=== PATIENT | female | born 1950 | race Caucasian/White ===

== ENCOUNTER 2016-10-19 09:25 | Inpatient (IN) | payer MEDICARE, OTHER ==
[~2016-10-19] VITALS: Ht 144.8 cm; Wt 79.9 kg
[2016-10-19] MEDS ORDERED: methylPREDNISolone SOD SUCC PF 125 MG/2 ML VIAL. ONE (09:33)
[2016-10-19] MEDS ORDERED: FAMOTIDINE 20 MG/2 ML VIAL ONE (09:33)
[2016-10-19] MEDS ORDERED: diphenhydrAMINE 50 MG/ML VIAL ONE (09:33)
[2016-10-19] MEDS ORDERED: IPRATRPIUM/ALBUTEROL 0.5/2.5MG 3 ML NEBU. ONE (09:34)
[2016-10-19] MEDS ORDERED: IV NORMAL SALINE 1,000ML 500 ML IV SCH (09:34)
[2016-10-19] MEDS ORDERED: EPINEPHrine 1 MG/ML AMPUL IM ONE (09:45)
[2016-10-19] MEDS ORDERED: diphenhydrAMINE 50 MG/ML VIAL IV ONE (09:45)
[2016-10-19] MEDS ORDERED: FAMOTIDINE 20 MG/2 ML VIAL IVP ONE (09:45)
[2016-10-19] MEDS ORDERED: methylPREDNISolone SOD SUCC PF 125 MG/2 ML VIAL. IV ONE (09:45)
--- NOTE | 2016-10-19 09:53 | PHYS DOC ---
General Chief Complaint: yellow jacket stings Stated Complaint: NA Time Seen by MD: 09:34 Source: patient Exam Limitations: no limitations Problems: History of Present Illness Initial Comments Patient is a 66-year-old female who comes to the ED complaining yellow jacket stings. Patient states she was outside working in the yard when she turned over a board. She says that she must have upset a wasp nest as they began to warm her and stabbing her. She says she was stung multiple times in the face and neck upper extremities and other individual sprayed her off with a cold follows to rid her of the wasps. She is complaining of severe pain at the sites of the numerous stings as well as a sensation of difficulty breathing and wheezing. She has history of COPD she has no prior history of insect sting allergies. She was able to shower briefly at home before coming to the emergency department for evaluation. On ED arrival her oxygen saturation is stable and she denies any funny feelings in her throat, throat or tongue swelling. No nausea vomiting no other pre-arrival treatment. Timing/Duration: 1/2 hour Severity: severe Modifying Factors: improves with cold therapy Associated Symptoms: rash, shortness of breath, other Allergies: Coded Allergies: hydrocodone (Verified Allergy, Intermediate, 10/19/16) codeine (Verified Allergy, Unknown, 10/19/16) Past Medical History Medical History: COPD Surgical History: noncontributory Social History Smoker: quit greater than 1 year Alcohol: none Drugs: none Review of Systems Constitutional: denies chills, denies diaphoresis, denies fever, denies malaise EENTM: denies eye pain, denies tearing, denies ear pain, denies ear discharge, denies nose pain, denies nose congestion, denies throat pain, denies throat swelling, denies mouth pain, denies mouth swelling Respiratory: see HPI Cardiovascular: denies chest pain, denies palpitations, denies syncope Gastrointestinal: denies diarrhea, denies nausea, denies vomiting Musculoskeletal: denies back pain, denies joint swelling, denies neck pain Skin: see HPI Hematologic/Lymphatic: denies blood clots, denies easy bleeding, denies easy bruising Physical Exam General Appearance: moderate distress, obese Eyes: bilateral eye normal inspection, bilateral eye PERRL, bilateral eye EOMI Ear, Nose, Throat: hearing grossly normal, normal ENT inspection, normal pharynx (no oral pharyngeal swelling noted airway is patent) Neck: non-tender, supple Respiratory: chest non-tender, no respiratory distress, other (faint wheeze bilaterally with good air movement) Cardiovascular: normal peripheral pulses, regular rate, rhythm Back: no CVA tenderness, no vertebral tenderness Extremities: normal range of motion, normal inspection Neurologic/Psychiatric: revenue specialist II-XII nml as tested, no motor/sensory deficits, alert, oriented x 3 Skin: warm/dry (scattered across bilateral upper extremities, and face and neck as well as a right knee 3 cm round urticarial erythematous lesions no retained particles noted no active bleeding or abrasions. All areas are warm slightly itchy and mildly tender) Orders, Labs, Meds Patient received epinephrine, Solu-Medrol, Benadryl, and Pepcid on ED arrival. Patient also received a breathing treatment and her sensations of dyspnea resolved. Patient still with severe pain at the sites of her standing as well as soft tissue swelling in general airway remains patent with no throat or tongue swelling. I discussed the patient with Dr. Arreaga who accepts inpatient telemetry admission for continued respiratory and symptom support. Departure Time of Disposition: 11:37 Disposition: 09 ADMITTED INPATIENT Diagnosis: wasp sting allergy/toxicity, copd Condition: STABLE Additional Instructions: Admit to Dr Arreaga tele/obs to continue analgesia, respiratory support and steroids/antihistamines. JOANN GRIER DO Oct 19, 2016 09:53
[2016-10-19] MEDS: fentaNYL PF 100 MCG/2 ML VIAL IV PRN ×4 (10:23→20:05)
[2016-10-19] MEDS ORDERED: fentaNYL PF 100 MCG/2 ML VIAL IV PRN (11:45)
[2016-10-19] MEDS ORDERED: ONDANSETRON PF 4 MG/2 ML VIAL. IV PRN (11:45)
[2016-10-19] MEDS ORDERED: ACETAMINOPHEN 325 MG TABLET PO PRN (11:45)
[2016-10-19 13:06] VITALS: BP 185/77
[2016-10-19 13:14] VITALS: BP 174/67
[2016-10-19 14:35] VITALS: BP 187/87
[2016-10-19] MEDS: diphenhydrAMINE 50 MG/ML VIAL IVP SCH ×3 (15:08→23:59)
[2016-10-19] MEDS: methylPREDNISolone SOD SUCC PF 125 MG/2 ML VIAL. IV SCH ×2 (15:10→21:56)
[2016-10-19 16:00] VITALS: BP 179/61
[2016-10-19] MEDS: IPRATRPIUM/ALBUTEROL 0.5/2.5MG 3 ML NEBU. NEB SCH ×3 (17:30→21:53)
[2016-10-19 19:40] VITALS: BP 183/80
[2016-10-19] MEDS ORDERED: FAMOTIDINE 20 MG/2 ML VIAL IVP SCH (21:00)
[2016-10-19 23:27] VITALS: BP 192/81
[2016-10-20 03:16] VITALS: BP 149/72
[2016-10-20] MEDS: methylPREDNISolone SOD SUCC PF 125 MG/2 ML VIAL. IV SCH (04:12)
[2016-10-20 05:22] VITALS: BP 130/60
[2016-10-20] MEDS: IPRATRPIUM/ALBUTEROL 0.5/2.5MG 3 ML NEBU. NEB SCH ×2 (05:42→10:22)
[2016-10-20] MEDS: diphenhydrAMINE 50 MG/ML VIAL IVP SCH (06:02)
[2016-10-20 06:26] LABS: BASO % 0 % (0-3); EOS % 0 % (0-3); HEMATOCRIT 38.1 % (36.0-47.0); HEMOGLOBIN 13.1 g/dL (12.0-15.5); LYMPH % 10 % (24-48); MEAN CORPUSCULAR HEMOGLOBIN 31 pg (25-35); MEAN CORPUSCULAR HGB CONC 35 g/dL (31-37); MEAN CORPUSCULAR VOLUME 90 fL (79-100); MONO # 0.2 x10^3/uL (0.0-1.1); MONO % 2 % (0-9); NEUT # 8.4 x10^3uL (1.8-7.7); NEUT % 88 % (31-73); PLATELET COUNT 190 x10^3/uL (140-400); RED BLOOD COUNT 4.25 x10^6/uL (3.50-5.40); RED CELL DISTRIBUTION WIDTH 15.1 % (11.5-14.5); WHITE BLOOD COUNT 9.5 x10^3/uL (4.0-11.0)
[2016-10-20 06:41] LABS: CALCIUM 9.5 mg/dL (8.5-10.1); CREATININE 0.8 mg/dL (0.6-1.0); GFR 71.8; POTASSIUM 4.3 mmol/L (3.5-5.1)
[2016-10-20 07:21] VITALS: BP 180/79
[2016-10-20] MEDS ORDERED: fentaNYL 12MCG/HR 1 PATCH PATCH TD SCH (09:00)
[2016-10-20] MEDS ORDERED: LOSARTAN 50 MG TABLET. PO SCH (09:00)
[2016-10-20] MEDS ORDERED: METOPROLOL TART IMMED RELEASE 50 MG TABLET PO SCH (09:00)
[2016-10-20] MEDS ORDERED: FAMOTIDINE 20 MG TABLET PO SCH (09:00)
[2016-10-20] MEDS ORDERED: methylPREDNISolone 4 MG TABLET. PO SCH (09:00)
[2016-10-20 11:21] VITALS: BP 182/76
[2016-10-20] MEDS ORDERED: diphenhydrAMINE HCL 25 MG CAPSULE PO SCH (12:00)
--- NOTE | 2016-10-20 12:02 | HP ---
ADMIT DATE: 10/19/2016 HISTORY OF PRESENT ILLNESS: A 66-year-old female out gathering leaves raking, was stung in the face and head with multiple wasp stings. The patient apparently had some type of obviously an insect reaction to the venom, lacy rivera, it was a wasp, not quite clear of the flying organisms that caused it, but the patient did have numerous stings, difficulty breathing, wheezing, and tightness in her lungs. As a result of this, she got into the ER, immediately placed her on oxygen and the patient was admitted for observation, also control of her blood pressure. 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 She did need to take them. PAST MEDICAL HISTORY: Includes that of she has had some form of skin cancer and COPD in the past. She does not have a list of her old medications because she has not taken them so long. FAMILY HISTORY: Unremarkable. SOCIAL HISTORY: Denies smoking, alcohol or drug use. The patient is a DNR. ALLERGIES: She has adverse reaction to codeine and hydrocodone, but fentanyl seems to help her degenerative arthritis, which is fairly severe giving her severe amounts of pain. REVIEW OF SYSTEMS: Presently denies any chest pain, shortness of breath, abdominal pain. Denies any melena, hematochezia, or hematemesis, and neurologically stable. PHYSICAL EXAMINATION: VITAL SIGNS: She has been running blood pressures of 100 upwards of 190/80, respiratory rate 23, pulse 70, afebrile. HEENT: The patient's head was atraumatic, normocephalic. Eyes: PERRLA without jaundice. Mouth and throat were normal. NECK: Supple, without thyromegaly. LUNGS: Diminished throughout, but clear. CARDIOVASCULAR: Regular sinus rhythm. ABDOMEN: Soft, nontender, no rebound or guarding, positive bowel sounds, no hepatosplenomegaly noted. EXTREMITIES: No clubbing, cyanosis or edema. NEUROLOGIC: The patient is still a little bit of short of breath. IMPRESSION AND PLAN: We will go ahead and continue to monitor her accordingly. Labs were basically unremarkable at this time. We will get a chest x-ray, blood sugar was 155, may need to get an A1c on her and some other blood test there. Otherwise, multiple insect bites to the face, severe reaction, mild anaphylactic reaction to the wasp stings with shortness of breath, respiratory failure. Continue to monitor the patient accordingly. Make further evaluation on her and hopefully ready for discharge, change her over to oral medications if possible discharge, control blood pressure, malignant hypertension as well as multiple insect bites to the face. BREE RICHARDS MD DR: VAHID/yuri JOB#: [id number] / [id number]
--- NOTE | 2016-10-20 12:57 | RAD ---
Indication shortness of breath and cough. PA and lateral views of the chest were obtained. No prior plain film imaging is available. Note is made of a CT examination of the chest 06/02/2006. The heart and pulmonary vessels appear normal. The lungs are clear of acute infiltrates. There is no pleural fluid or pneumothorax. The stomach is somewhat distended with fluid and gas. IMPRESSION: No acute or focal process is seen in the chest
[2016-10-20] MEDS ORDERED: METH4TAB2 PO (13:07)
[2016-10-20] MEDS ORDERED: FENT-73 TD (13:07)
[2016-10-20] MEDS ORDERED: METO50TA2 PO (13:07)
[2016-10-20] MEDS ORDERED: FAMO20TA5 PO (13:07)
[2016-10-20] MEDS ORDERED: LOSA50TA2 PO (13:07)
== END 2016-10-20 14:00 | disposition home or self-care (01) | DRG 917 ==
LOC: ER 09:25 → ICU 12:10 → OBSVTOIN 14:17
PROVIDERS: ADMIT Family Medicine; ATTEND Family Medicine
DX: T63.461A Toxic effect of venom of wasps, accidental (unintentional), initial encounter (principal); J96.90 Respiratory failure, unspecified, unspecified whether with hypoxia or hypercapnia; T78.2XXA Anaphylactic shock, unspecified, initial encounter; X58.XXXA Exposure to other specified factors, initial encounter; J44.9 Chronic obstructive pulmonary disease, unspecified; M19.90 Unspecified osteoarthritis, unspecified site; I10 Essential (primary) hypertension; Z66 Do not resuscitate; Z85.828 Personal history of other malignant neoplasm of skin; Z87.891 Personal history of nicotine dependence; Z88.8 Allergy status to other drugs, medicaments and biological substances; Y92.096 Garden or yard of other non-institutional residence as the place of occurrence of the external cause
CPT/HCPCS: 36415; 71020; 80048; 85025; 87641; 94640; 96361; 96372; 96374; 96375; G0378; G0379; J0171; J1200; J2930; J3010; J7509; J7620; Q0163; S0028; 99285-25; J7030

== ENCOUNTER 2017-02-21 17:25 | Inpatient (IN) | payer MEDICARE, OTHER ==
[~2017-02-21] VITALS: Ht 144.8 cm; Wt 85.3 kg
[~2017-02-21 17:25] MED LIST: FAMO20TA5 PO; FENT-73 TD; LOSA50TA2 PO; METH4TAB2 PO; METO50TA6 PO
[2017-02-21 19:35] LABS: BASO % 1 % (0-3); EOS % 0 % (0-3); HEMATOCRIT 36.3 % (36.0-47.0); HEMOGLOBIN 12.3 g/dL (12.0-15.5); LYMPH # 0.7 x10^3/uL (1.0-4.8); LYMPH % 15 % (24-48); MEAN CORPUSCULAR HEMOGLOBIN 30 pg (25-35); MEAN CORPUSCULAR HGB CONC 34 g/dL (31-37); MEAN CORPUSCULAR VOLUME 89 fL (79-100); MONO # 0.4 x10^3/uL (0.0-1.1); MONO % 8 % (0-9); NEUT # 3.4 x10^3uL (1.8-7.7); NEUT % 76 % (31-73); PLATELET COUNT 150 x10^3/uL (140-400); RED CELL DISTRIBUTION WIDTH 14.2 % (11.5-14.5); WHITE BLOOD COUNT 4.5 x10^3/uL (4.0-11.0)
[2017-02-21] MEDS ORDERED: FURO20TA3 PO (19:41)
[2017-02-21] MEDS ORDERED: ATOR20TA58 PO (19:41)
[2017-02-21] MEDS ORDERED: FENT1PAT15 TD (19:41)
[2017-02-21 19:42] LABS: ALBUMIN 3.5 g/dL (3.4-5.0); ALBUMIN/GLOBULIN RATIO 0.8 (1.0-1.7); CALCIUM 9.1 mg/dL (8.5-10.1); CREATININE 0.7 mg/dL (0.6-1.0); GFR 83.5; MAGNESIUM 2.1 mg/dL (1.8-2.4); POTASSIUM 3.6 mmol/L (3.5-5.1); TOTAL BILIRUBIN 0.3 mg/dL (0.2-1.0); TOTAL PROTEIN 7.7 g/dL (6.4-8.2)
[2017-02-21] MEDS: ONDANSETRON ODT 4 MG TAB.RAPDIS PO PRN (19:47)
[2017-02-21 20:02] VITALS: BP 161/70
[2017-02-21] MEDS: IV NORMAL SALINE 1,000ML 1,000 ML IV SCH (20:08)
[2017-02-21 20:40] LABS: INFLUENZA A PATIENT NEGATIVE (NEGATIVE); INFLUENZA B PATIENT NEGATIVE (NEGATIVE)
[2017-02-21] MEDS ORDERED: AZITHROMYCIN 250 MG in IV NORMAL SALINE 250ML 250 ML IV SCH (21:30)
[2017-02-21] MEDS ORDERED: AZITHROMYCIN 500 MG in IV NORMAL SALINE 250ML 250 ML IV SCH (21:30)
[2017-02-21] MEDS: IPRATRPIUM/ALBUTEROL 0.5/2.5MG 3 ML NEBU. NEB SCH (22:11)
[2017-02-21] MEDS: ONDANSETRON PF 4 MG/2 ML VIAL. IV PRN (22:11)
[2017-02-21] MEDS: ATORVASTATIN CALCIUM 20 MG TABLET PO SCH (22:11)
[2017-02-21] MEDS: FAMOTIDINE 20 MG TABLET PO SCH (22:11)
[2017-02-21] MEDS: METOPROLOL TART IMMED RELEASE 50 MG TABLET PO SCH (22:12)
[2017-02-21 22:24] LABS: COLOR,URINE YELLOW
[2017-02-21 22:25] LABS: BACTERIA,URINE FEW /HPF (0-FEW); BILIRUBIN,URINE NEG (NEG); CLARITY,URINE HAZY; GLUCOSE,URINE NEG (NEG); NITRITE,URINE NEG (NEG); SQUAMOUS EPITHELIAL CELL,UR MANY /LPF; UROBILINOGEN,URINE 0.2 mg/dL (0.2 mg/dL)
[2017-02-22 00:20] VITALS: BP 121/63
[2017-02-22 05:00] VITALS: BP 128/72
[2017-02-22] MEDS: IV NORMAL SALINE 1,000ML 1,000 ML IV SCH ×2 (05:26→16:04)
[2017-02-22] MEDS: IPRATRPIUM/ALBUTEROL 0.5/2.5MG 3 ML NEBU. NEB SCH ×3 (06:18→21:03)
[2017-02-22] MEDS: ONDANSETRON PF 4 MG/2 ML VIAL. IV PRN (07:57)
[2017-02-22] MEDS: FAMOTIDINE 20 MG TABLET PO SCH ×2 (08:01→20:58)
[2017-02-22] MEDS: LOSARTAN 50 MG TABLET. PO SCH (08:01)
[2017-02-22] MEDS: FUROSEMIDE 20 MG TABLET PO SCH (08:01)
[2017-02-22] MEDS: METOPROLOL TART IMMED RELEASE 50 MG TABLET PO SCH ×2 (08:03→20:58)
--- NOTE | 2017-02-22 08:54 | RAD ---
Two Views of the Chest 02/22/2017 10:00 AM Indication: shortness of air Comparison: Chest radiograph October 20, 2016 Findings: There is no focal consolidation or infiltrate identified. There is no effusion or pneumothorax. The cardiomediastinal silhouette and pulmonary vasculature are within normal limits. No osseous abnormality is identified. Impression: No evidence of acute cardiopulmonary process.
[2017-02-22] MEDS: methylPREDNISolone SOD SUCC PF 40 MG/ML VIAL. IV SCH ×3 (09:00→20:58)
[2017-02-22] MEDS ORDERED: methylPREDNISolone SOD SUCC PF 125 MG/2 ML VIAL. IV SCH (09:00)
[2017-02-22] MEDS ORDERED: diphenhydrAMINE 50 MG/ML VIAL IVP PRN (09:30)
[2017-02-22] MEDS ORDERED: diphenhydrAMINE 50 MG/ML VIAL IM ONE (09:30)
[2017-02-22] MEDS ORDERED: IV 1/2 NORMAL SALINE 1,000 ML IV PRN (09:30)
[2017-02-22] MEDS: diphenhydrAMINE 50 MG/ML VIAL IVP PRN (10:09)
[2017-02-22] MEDS: ONDANSETRON ODT 4 MG TAB.RAPDIS PO PRN (10:20)
[2017-02-22 11:28] VITALS: BP 146/74
[2017-02-22] MEDS ORDERED: ALBUTEROL SULFATE 2.5 MG/3 ML NEBU. ONE (14:53)
[2017-02-22] MEDS ORDERED: ALBUTEROL SULFATE 2.5 MG/3 ML NEBU. NEB PRN (15:00)
[2017-02-22 15:20] VITALS: BP 151/78
[2017-02-22 19:35] VITALS: BP 150/67
[2017-02-22] MEDS: ATORVASTATIN CALCIUM 20 MG TABLET PO SCH (20:58)
[2017-02-22 23:28] VITALS: BP 133/68
[2017-02-23] MEDS: IV NORMAL SALINE 1,000ML 1,000 ML IV SCH (02:08)
[2017-02-23] MEDS: IPRATRPIUM/ALBUTEROL 0.5/2.5MG 3 ML NEBU. NEB SCH ×3 (05:48→21:37)
[2017-02-23] MEDS: methylPREDNISolone SOD SUCC PF 40 MG/ML VIAL. IV SCH ×2 (06:00→20:38)
--- NOTE | 2017-02-23 06:37 | PN ---
DATE: 02/22/2017 SUBJECTIVE: A 67-year-old female came in with a possible drug reaction from the antibiotic. She was not responding to outpatient therapy for fever, chills and rigor. The patient has been placed on IV Solu-Medrol, Benadryl. Further reaction, face is swollen up and possible like an angioedema type of picture. She is running low grade temperatures of 99.1. OBJECTIVE: VITAL SIGNS: Blood pressure 120/60, respiratory 18, pulse 60, afebrile at the present time, but has been running low grade temps. GENERAL: The patient is alert and oriented. LUNGS: Diminished. FACE: Markedly swollen however. CARDIOVASCULAR: Regular sinus rhythm, S1, S2, without murmur, rub, thrill, or extra heart sound. ABDOMEN: Soft, nontender. The patient's labs have been basically unremarkable. IMPRESSION: Angioedema, hematuria, dehydration. PLAN: The patient will be continued on IV Solu-Medrol, aggressive Benadryl therapy and see if we can reverse this patient's reaction. BREE RICHARDS MD DR: VAHID/yuri JOB#: [id number] / [id number]
[2017-02-23] MEDS ORDERED: methylPREDNISolone SOD SUCC PF 40 MG/ML VIAL. IV SCH (09:00)
[2017-02-23] MEDS: METOPROLOL TART IMMED RELEASE 50 MG TABLET PO SCH ×2 (09:25→20:40)
[2017-02-23] MEDS: FAMOTIDINE 20 MG TABLET PO SCH ×2 (09:25→20:38)
[2017-02-23] MEDS: LOSARTAN 50 MG TABLET. PO SCH (09:25)
[2017-02-23] MEDS: FUROSEMIDE 20 MG TABLET PO SCH (09:25)
[2017-02-23 11:20] VITALS: BP 154/68
[2017-02-23 15:25] VITALS: BP 144/76
[2017-02-23] MEDS: diphenhydrAMINE 50 MG/ML VIAL IVP PRN ×2 (16:23→22:17)
[2017-02-23 19:42] VITALS: BP 153/73
[2017-02-23] MEDS: ATORVASTATIN CALCIUM 20 MG TABLET PO SCH (20:38)
[2017-02-23 22:57] VITALS: BP 152/80
--- NOTE | 2017-02-24 00:19 | PN ---
DATE: 02/23/2017 SUBJECTIVE: The patient in with acute exacerbation of COPD as well as with a possible ALLERGIC REACTION TO ZITHROMAX. The patient face is still kahn, swollen, red. The patient is still having some trouble with swelling to her lips, neck and throat area. The patient continued to be monitored carefully to make further evaluation on her, but she is starting to bring up some stuff. We will have her breathing treatments adjusted accordingly as she receives breathing treatments to help her with bringing up phlegm. Otherwise, basically she is feeling somewhat better, still swollen face. OBJECTIVE: VITAL SIGNS: Blood pressure 130/60, respiratory rate 14, pulse 80, afebrile, oxygen saturation still on 2 liters needed. LUNGS: Diminished throughout, poor movement of air, coarse breath sounds, primarily in the chest wall area, although chest x-ray did not show anything. CARDIOVASCULAR: Regular sinus rhythm. ABDOMEN: Soft, nontender. EXTREMITIES: No clubbing, cyanosis or edema. NEUROLOGIC: Intact. The patient continued to be monitored carefully and make further evaluation on her as indicated per those results. IMPRESSION: Acute exacerbation of chronic obstructive pulmonary disease, ALLERGIC REACTION TO AZITHROMYCIN, hyperglycemia secondary to use of steroids. PLAN: Continue with therapy and breathing treatments and make further evaluation on those results. BREE RICHARDS MD DR: VAHID/yuri JOB#: [id number] / [id number]
[2017-02-24 05:53] VITALS: BP 154/73
[2017-02-24] MEDS: IPRATRPIUM/ALBUTEROL 0.5/2.5MG 3 ML NEBU. NEB SCH ×3 (06:08→22:24)
[2017-02-24 06:31] LABS: BASO % 0 % (0-3); EOS % 0 % (0-3); HEMOGLOBIN 11.9 g/dL (12.0-15.5); LYMPH # 1.2 x10^3/uL (1.0-4.8); LYMPH % 15 % (24-48); MEAN CORPUSCULAR HEMOGLOBIN 30 pg (25-35); MEAN CORPUSCULAR HGB CONC 34 g/dL (31-37); MEAN CORPUSCULAR VOLUME 89 fL (79-100); MONO # 0.5 x10^3/uL (0.0-1.1); MONO % 6 % (0-9); NEUT # 6.4 x10^3uL (1.8-7.7); NEUT % 78 % (31-73); PLATELET COUNT 175 x10^3/uL (140-400); RED BLOOD COUNT 3.94 x10^6/uL (3.50-5.40); RED CELL DISTRIBUTION WIDTH 13.7 % (11.5-14.5); WHITE BLOOD COUNT 8.1 x10^3/uL (4.0-11.0)
[2017-02-24 06:50] LABS: ALBUMIN/GLOBULIN RATIO 0.8 (1.0-1.7); CALCIUM 8.8 mg/dL (8.5-10.1); CREATININE 0.7 mg/dL (0.6-1.0); GFR 83.5; POTASSIUM 4.1 mmol/L (3.5-5.1); TOTAL BILIRUBIN 0.2 mg/dL (0.2-1.0); TOTAL PROTEIN 6.9 g/dL (6.4-8.2)
[2017-02-24] MEDS ORDERED: fentaNYL 25MCG/HR 1 PATCH PATCH TD SCH (09:00)
[2017-02-24] MEDS: METOPROLOL TART IMMED RELEASE 50 MG TABLET PO SCH ×2 (09:03→21:00)
[2017-02-24] MEDS: FUROSEMIDE 20 MG TABLET PO SCH (09:04)
[2017-02-24] MEDS: LOSARTAN 50 MG TABLET. PO SCH (09:04)
[2017-02-24] MEDS: FAMOTIDINE 20 MG TABLET PO SCH ×2 (09:04→20:59)
[2017-02-24] MEDS: methylPREDNISolone SOD SUCC PF 40 MG/ML VIAL. IV SCH ×2 (09:05→21:00)
[2017-02-24 10:52] VITALS: BP 167/82
[2017-02-24 14:48] VITALS: BP 150/77
[2017-02-24] MEDS ORDERED: CYCLOBENZAPRINE 10 MG TABLET. PO PRN (15:15)
[2017-02-24] MEDS: KETOROLAC 15 MG/ML VIAL. IV PRN (18:05)
[2017-02-24 19:28] VITALS: BP 163/70
[2017-02-24] MEDS: ATORVASTATIN CALCIUM 20 MG TABLET PO SCH (20:59)
[2017-02-24] MEDS: diphenhydrAMINE 50 MG/ML VIAL IVP PRN (21:06)
[2017-02-24 23:30] VITALS: BP 159/82
[2017-02-25] MEDS: KETOROLAC 15 MG/ML VIAL. IV PRN ×2 (01:43→15:02)
[2017-02-25 05:45] VITALS: BP 154/81
[2017-02-25] MEDS: IPRATRPIUM/ALBUTEROL 0.5/2.5MG 3 ML NEBU. NEB SCH ×2 (06:07→11:38)
[2017-02-25 07:59] LABS: HEMATOCRIT 36.7 % (36.0-47.0); HEMOGLOBIN 12.5 g/dL (12.0-15.5); RED BLOOD COUNT 4.12 x10^6/uL (3.50-5.40); WHITE BLOOD COUNT 9.4 x10^3/uL (4.0-11.0)
[2017-02-25 08:20] LABS: CALCIUM 8.6 mg/dL (8.5-10.1); CREATININE 0.6 mg/dL (0.6-1.0); GFR 99.7; POTASSIUM 4.5 mmol/L (3.5-5.1)
[2017-02-25] MEDS: FAMOTIDINE 20 MG TABLET PO SCH (09:23)
[2017-02-25] MEDS: ONDANSETRON ODT 4 MG TAB.RAPDIS PO PRN (09:23)
[2017-02-25] MEDS: methylPREDNISolone SOD SUCC PF 40 MG/ML VIAL. IV SCH (09:24)
[2017-02-25] MEDS: METOPROLOL TART IMMED RELEASE 50 MG TABLET PO SCH (10:06)
[2017-02-25] MEDS: LOSARTAN 50 MG TABLET. PO SCH (10:07)
[2017-02-25] MEDS: FUROSEMIDE 20 MG TABLET PO SCH (10:07)
[2017-02-25 11:25] VITALS: BP 146/84
[2017-02-25 16:13] VITALS: BP 159/89
[2017-02-25] MEDS ORDERED: PRED1TAB PO (16:31)
[2017-02-25] MEDS ORDERED: FURO10SO PO (16:31)
[2017-02-25] MEDS ORDERED: CYCL-331 PO (16:31)
[2017-02-25] MEDS ORDERED: IPRA3AMP NEB (16:31)
[2017-02-25] MEDS ORDERED: MORP30TA3 PO (16:31)
[2017-02-25] MEDS ORDERED: ONDA4TAB12 PO (16:31)
--- NOTE | 2017-02-25 17:13 | PN ---
DATE: SUBJECTIVE: A 67-year-old female with exacerbation of COPD, still having problems with her breathing. The patient is on 2 liters, just 92% with expiratory wheezes noted. The patient otherwise is having severe back pain, give her some ketorolac for discomfort. PHYSICAL EXAMINATION: VITAL SIGNS: Otherwise includes that of a blood pressure 150/77, respiratory rate 20, pulse 68, afebrile, oxygen saturation as noted at 92% on 2 liters. GENERAL: The patient is alert and oriented. LUNGS: Show expiratory wheezes, tightness in the chest has improved, but certainly still tight requiring IV Solu-Medrol. EXTREMITIES: No clubbing, cyanosis or edema. NEUROLOGIC: The patient was alert and oriented x 3. Speech fluent, spontaneous, appropriate. Cranial nerves 2-12 are grossly intact. The patient is continued to be monitored carefully. IMPRESSION: Acute on top of chronic obstructive pulmonary disease, ALLERGIC REACTION TO AZITHROMYCIN, hyperglycemia secondary to steroids, asthmatic condition of bronchospasm. PLAN: The patient continued to be monitored carefully, make further evaluation, tapering down on her Solu-Medrol gradually and aggressive pulmonary toilet. BREE RICHARDS MD DR: VAHID/yuri JOB#: [id number] / [id number]
--- NOTE | 2017-03-13 23:47 | DS ---
DATE OF DISCHARGE: 02/25/2017 HOSPITAL COURSE: A 67-year-old female came in with possible drug reaction from an antibiotic, she was on Zithromax. She was having marked swelling to her face and difficulty with swallowing because of the swelling to that area. She was placed on IV Solu-Medrol and Benadryl. She was also running a low grade temperature was noted to have angioedema, hematuria, dehydration. At that time, the patient's chest x-rays were unremarkable. Labs demonstrated were basically unremarkable to that situation. She did have a low albumin. Her urine was good. Her urine did show some pus cells in it, but there was no results for the culture of the urine. She was also very dehydrated. She made good progress during the rest of her hospitalization. Influenza screens were negative at that time. The patient otherwise made good progress during the rest of her hospitalization. She was discharged to her home. See MRAD. Follow up as indicated here in 7-10 days or sooner as needed. IMPRESSION: Angioedema acute bronchitis. See MRAD. Decreased activity and followup accordingly as an outpatient. REACTION TO AZITHROMYCIN. Hyperglycemia secondary to steroids, asthmatic condition of bronchospasm and [id number] protein malnutrition, morbid obesity, dehydration. BREE RICHARDS MD DR: VAHID/yuri JOB#: [id number] / [id number]
== END 2017-02-25 17:00 | disposition home health service (06) | DRG 191 ==
LOC: ICU 17:25 → 1 SOUTH 02-23 04:16
PROVIDERS: ADMIT Family Medicine; ATTEND Family Medicine
DX: J44.1 Chronic obstructive pulmonary disease with (acute) exacerbation (principal); E44.0 Moderate protein-calorie malnutrition; G62.9 Polyneuropathy, unspecified; T78.3XXA Angioneurotic edema, initial encounter; T36.3X5A Adverse effect of macrolides, initial encounter; E86.0 Dehydration; T38.0X5A Adverse effect of glucocorticoids and synthetic analogues, initial encounter; R31.9 Hematuria, unspecified; J02.8 Acute pharyngitis due to other specified organisms; G47.30 Sleep apnea, unspecified; M19.90 Unspecified osteoarthritis, unspecified site; M81.0 Age-related osteoporosis without current pathological fracture; R73.9 Hyperglycemia, unspecified; M79.7 Fibromyalgia; Z88.1 Allergy status to other antibiotic agents; Y92.89 Other specified places as the place of occurrence of the external cause; Z90.710 Acquired absence of both cervix and uterus; Z98.49 Cataract extraction status, unspecified eye
CPT/HCPCS: 36415; 71046; 80048; 80053; 81001; 83605; 83735; 85025; 85027; 87040; 87641; 87804; 94618; 94640; J0456; J1200; J1885; J2405; J2920; J2930; J7050; J7613; J7620; Q0162; 97110; 97530; 97535; J7030

== ENCOUNTER 2017-03-10 10:46 | Inpatient (IN) | payer MEDICARE, OTHER ==
[~2017-03-10] VITALS: Ht 144.8 cm; Wt 85.3 kg
[~2017-03-10 10:46] MED LIST changes: +ATOR20TA58 PO; +CYCL-331 PO; +FENT1PAT15 TD; +FURO10SO PO; +FURO20TA3 PO; +IPRA3AMP NEB; +MORP30TA3 PO; +ONDA4TAB12 PO; +PRED1TAB PO
[2017-03-10 11:28] LABS: BASO % 0 % (0-3); EOS % 0 % (0-3); HEMATOCRIT 34.8 % (36.0-47.0); HEMOGLOBIN 11.7 g/dL (12.0-15.5); LYMPH # 0.6 x10^3/uL (1.0-4.8); LYMPH % 6 % (24-48); MEAN CORPUSCULAR HEMOGLOBIN 30 pg (25-35); MEAN CORPUSCULAR HGB CONC 34 g/dL (31-37); MEAN CORPUSCULAR VOLUME 89 fL (79-100); MONO # 0.6 x10^3/uL (0.0-1.1); MONO % 6 % (0-9); NEUT % 88 % (31-73); PLATELET COUNT 122 x10^3/uL (140-400); RED CELL DISTRIBUTION WIDTH 14.4 % (11.5-14.5); WHITE BLOOD COUNT 10.3 x10^3/uL (4.0-11.0)
[2017-03-10] MEDS ORDERED: ACETAMINOPHEN 500 MG TABLET PO ONE (11:30)
--- NOTE | 2017-03-10 11:31 | ED.ADGEN ---
Past History Past Medical History: COPD, Fibromyalgia Past Surgical History: , Hysterectomy Alcohol Use: None Drug Use: None Adult General Chief Complaint Chief Complaint fever, body aches, nausea HPI HPI Patient is a 67 year old female who presents with generalized body aches, ill feeling, fever since yesterday. She denies headaches, reports cough and chest heaviness. No abdominal pain, dysuria or increased urinary frequency, denies diarrhea. She did not receive a flu shot this year. She attempted Tylenol 1 AM this morning that only minimally improved her symptoms. The chest pain is nonradiating and pt states "it's not my heart". Pt had recent hospitalization for chest pain/viral illness. PCP is Dr. Arreaga Review of Systems Review of Systems Constitutional: Fever Eyes: Denies change in visual acuity, redness, or eye pain [] HENT: Nasal drainage Respiratory: Productive cough Cardiovascular: No additional information not addressed in HPI [] GI: Denies abdominal pain, vomiting, bloody stools or diarrhea [] : Denies dysuria or hematuria [] Musculoskeletal: Generalized body aches Integument: Denies rash or skin lesions [] Neurologic: Denies headache, focal weakness or sensory changes [] Current Medications Current Medications Current Medications Medications (Trade) Dose Ordered Sig/Aleyda Start Time Stop Time Status Last Admin Dose Admin Acetaminophen (Tylenol) 650 mg PRN Q4HRS PRN 03/10/17 13:30 03/11/17 13:29 Aspirin (Tosin Aspirin) 325 mg 1X ONCE 03/10/17 13:00 03/10/17 13:01 DC 03/10/17 13:18 325 MG Fentanyl Citrate (Fentanyl 2ml Vial) 50 mcg 1X ONCE 03/10/17 13:00 03/10/17 13:01 DC 03/10/17 13:19 50 MCG Ketorolac Tromethamine (Toradol) 30 mg 1X ONCE 03/10/17 12:30 03/10/17 12:31 DC 03/10/17 12:10 30 MG Morphine Sulfate (Morphine 2mg Syringe) 2 mg PRN Q2HR PRN 03/10/17 13:30 03/11/17 13:29 03/11/17 02:43 2 MG Ondansetron HCl (Zofran) 4 mg PRN Q4HRS PRN 03/10/17 13:30 03/11/17 13:29 03/10/17 14:40 4 MG Oseltamivir Phosphate (Tamiflu) 75 mg 1X ONCE 03/10/17 12:30 03/10/17 12:31 DC 03/10/17 13:18 75 MG Sodium Chloride 1,000 ml @ 1,000 mls/hr 1X ONCE 03/10/17 12:45 03/10/17 13:45 DC 03/10/17 13:23 1,000 MLS/HR Allergies Allergies Allergies Coded Allergies Type Severity Reaction Last Updated Verified azithromycin Allergy Severe Rash 02/22/17 Yes codeine Allergy Intermediate 10/20/16 Yes Physical Exam Physical Exam Constitutional: Well developed, well nourished, ill appearing, non-toxic appearance. [] HENT: Normocephalic, atraumatic, bilateral external ears normal, oropharynx dry , no oral exudates, nose normal. [] Eyes: PERRLA, EOMI, conjunctiva normal, no discharge. [] Neck: Normal range of motion, no tenderness, supple, no stridor. [] Cardiovascular:Heart rate regular with regular rhythm, no murmur [] Lungs & Thorax: Bilateral breath sounds clear to auscultation, no wheeze or crackles Abdomen: Bowel sounds normal, soft, no tenderness, no masses, no pulsatile masses. [] Skin: Hot, dry, no erythema, no rash. [] Back: No tenderness, no CVA tenderness. [] Extremities: No tenderness, no cyanosis, no clubbing, ROM intact, no edema. [] Neurologic: Alert and oriented X 3, normal motor function, normal sensory function, no focal deficits noted. [] Psychologic: Affect normal, judgement normal, mood normal. [] Current Patient Data Vital Signs Vital Signs Date Time Temp Pulse Resp B/P (MAP) Pulse Ox O2 Delivery O2 Flow Rate FiO2 03/10/17 13:19 18 94 03/10/17 12:14 103.1 118 130/88 (102) Room Air Lab Results Laboratory Tests Test 03/10/17 11:00 03/10/17 11:12 03/10/17 11:29 03/10/17 12:50 White Blood Count 10.3 x10^3/uL (4.0-11.0) Red Blood Count 3.90 x10^6/uL (3.50-5.40) Hemoglobin 11.7 g/dL (12.0-15.5) L Hematocrit 34.8 % (36.0-47.0) L Mean Corpuscular Volume 89 fL (79-100) Mean Corpuscular Hemoglobin 30 pg (25-35) Mean Corpuscular Hemoglobin Concent 34 g/dL (31-37) Red Cell Distribution Width 14.4 % (11.5-14.5) Platelet Count 122 x10^3/uL (140-400) L Neutrophils (%) (Auto) 88 % (31-73) H Lymphocytes (%) (Auto) 6 % (24-48) L Monocytes (%) (Auto) 6 % (0-9) Eosinophils (%) (Auto) 0 % (0-3) Basophils (%) (Auto) 0 % (0-3) Neutrophils # (Auto) 9.0 x10^3uL (1.8-7.7) H Lymphocytes # (Auto) 0.6 x10^3/uL (1.0-4.8) L Monocytes # (Auto) 0.6 x10^3/uL (0.0-1.1) Eosinophils # (Auto) 0.0 x10^3/uL (0.0-0.7) Basophils # (Auto) 0.0 x10^3/uL (0.0-0.2) Sodium Level 141 mmol/L (136-145) Potassium Level 3.5 mmol/L (3.5-5.1) Chloride Level 104 mmol/L (98-107) Carbon Dioxide Level 26 mmol/L (21-32) Anion Gap 11 (6-14) Blood Urea Nitrogen 12 mg/dL (7-20) Creatinine 0.9 mg/dL (0.6-1.0) Estimated GFR (Cockcroft-Gault) 62.5 BUN/Creatinine Ratio 13 (6-20) Glucose Level 130 mg/dL (70-99) H Calcium Level 9.4 mg/dL (8.5-10.1) Total Bilirubin 0.6 mg/dL (0.2-1.0) Aspartate Amino Transferase (AST) 46 U/L (15-37) H Alanine Aminotransferase (ALT) 86 U/L (14-59) H Alkaline Phosphatase 90 U/L (46-116) Troponin I Quantitative < 0.017 ng/mL (0-0.055) Total Protein 7.7 g/dL (6.4-8.2) Albumin 3.2 g/dL (3.4-5.0) L Albumin/Globulin Ratio 0.7 (1.0-1.7) L Lactic Acid Level 2.0 mmol/L (0.4-2.0) Influenza Type A (Rapid) Negative (NEGATIVE) Influenza Type B (Rapid) Negative (NEGATIVE) Urine Collection Type Unknown Urine Color Yellow Urine Clarity Clear Urine pH 8.5 Urine Specific [place] 1.020 Urine Protein 100 mg/dl (NEG-TRACE) Urine Glucose (UA) Neg mg/dL (NEG) Urine Ketones (Stick) Trace mg/dL (NEG) Urine Blood Small (NEG) Urine Nitrite Neg (NEG) Urine Bilirubin Neg (NEG) Urine Urobilinogen Dipstick 1 mg/dL (0.2 mg/dL) Urine Leukocyte Esterase Neg (NEG) Urine RBC 3-5 /HPF (0-2) Urine WBC 0 /HPF (0-4) Urine Squamous Epithelial Cells Occ /LPF Urine Bacteria 0 /HPF (0-FEW) Urine Mucus Slight /LPF EKG EKG 1201: 119 bpm, sinus tach, normal axis, QTC of 501, no ST elevation or depression, nonischemic T waves, interpreted by nj Radiology/Procedures Radiology/Procedures Chest x-ray:Portable chest, 03/10/2017: History: Chest pain, cough Comparison is made to a study from 02/22/2017. The heart size and pulmonary vascularity are normal. No pulmonary infiltrates are seen. There is no evidence of pleural fluid. IMPRESSION: No acute cardiopulmonary abnormality is detected. CTA chest: IMPRESSION: 1. No CT evidence of central pulmonary emboli. 2. Moderate atelectasis/consolidation posteriorly in the left lower lobe. 3. Hepatic steatosis. Course & Med Decision Making Course & Med Decision Making Pertinent Labs and Imaging studies reviewed. (See chart for details) Patient given by mouth Tylenol, 1 L of IV fluids, lab work, urinalysis, rapid flu, chest x-ray ordered Labs, urinalysis, IV, Zofran and IV fluids given. Patient's rapid flu was negative but based on her viral illness. Consistent with influenza, I proceeded to treat the patient with Tamiflu by mouth. Patient's chest pain worsened and patient was given aspirin and IV fentanyl. Her initial troponin was negative however based on the increase of her symptoms , we will admit her for further evaluation. I spoke with Dr. Brothers who agreed to admit the patient and a CT angiography chest was ordered due to patient's chest pain or recent hospitalization. No PE was noted but there was consolidation and as patient has feeling so ill and coughing, we will treat for healthcare acquired pneumonia with Levaquin, vancomycin and cefepime. Final Impression Final Impression MRSA pneumonia - possible Angina Viral syndrome fever Total critical care time: 35 minutes Problems: Dragon Disclaimer Dragon Disclaimer This electronic medical record was generated, in whole or in part, using a voice recognition dictation system. MICHEL BAILEY MD Mar 10, 2017 11:30
[2017-03-10 11:45] LABS: ALBUMIN 3.2 g/dL (3.4-5.0); ALBUMIN/GLOBULIN RATIO 0.7 (1.0-1.7); CALCIUM 9.4 mg/dL (8.5-10.1); CREATININE 0.9 mg/dL (0.6-1.0); GFR 62.5; POTASSIUM 3.5 mmol/L (3.5-5.1); TOTAL BILIRUBIN 0.6 mg/dL (0.2-1.0); TOTAL PROTEIN 7.7 g/dL (6.4-8.2)
[2017-03-10] MEDS ORDERED: IV NORMAL SALINE 1,000ML 1,000 ML IV ONE ×2 (11:45→12:45)
--- NOTE | 2017-03-10 11:47 | RAD ---
Portable chest, 03/10/2017: History: Chest pain, cough Comparison is made to a study from 02/22/2017. The heart size and pulmonary vascularity are normal. No pulmonary infiltrates are seen. There is no evidence of pleural fluid. IMPRESSION: No acute cardiopulmonary abnormality is detected.
[2017-03-10 11:51] LABS: INFLUENZA A PATIENT NEGATIVE (NEGATIVE); INFLUENZA B PATIENT NEGATIVE (NEGATIVE)
[2017-03-10] MEDS ORDERED: OSELTAMIVIR 75 MG CAPSULE PO ONE (12:30)
[2017-03-10] MEDS ORDERED: KETOROLAC 30 MG/ML VIAL. IV ONE (12:30)
[2017-03-10] MEDS ORDERED: ASPIRIN 325 MG TABLET PO ONE (13:00)
[2017-03-10 13:21] LABS: BACTERIA,URINE 0 /HPF (0-FEW); BILIRUBIN,URINE NEG (NEG); CLARITY,URINE CLEAR; COLOR,URINE YELLOW; GLUCOSE,URINE NEG (NEG); NITRITE,URINE NEG (NEG); SQUAMOUS EPITHELIAL CELL,UR OCC /LPF; UROBILINOGEN,URINE 1 mg/dL (0.2 mg/dL); WBC,URINE 0 /HPF (0-4)
[2017-03-10] MEDS ORDERED: ONDANSETRON PF 4 MG/2 ML VIAL. IV PRN (13:30)
[2017-03-10] MEDS ORDERED: ACETAMINOPHEN 325 MG TABLET PO PRN (13:30)
--- NOTE | 2017-03-10 13:56 | EKG ---
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
[2017-03-10] MEDS ORDERED: IOHEXOL 300 MG/ML 75 ML VIAL. IV ONE (14:00)
[2017-03-10] MEDS ORDERED: diphenhydrAMINE 50 MG/ML VIAL IVP ONE (14:00)
[2017-03-10] MEDS ORDERED: methylPREDNISolone SOD SUCC PF 125 MG/2 ML VIAL. IV ONE (14:00)
--- NOTE | 2017-03-10 14:25 | RAD ---
CTA of the chest with contrast, 03/10/2017: History: Chest pain, shortness of breath Multidetector CT imaging was performed following an IV bolus injection of iodinated contrast material. Multiplanar reconstructions were produced including coronal and sagittal MIP images. The main and lobar pulmonary arteries show no filling defects to suggest pulmonary emboli. Some of the smaller pulmonary arteries were not clearly delineated due to technical factors. No definite pulmonary emboli are seen. There is only minimal calcific plaquing of the thoracic aorta. There is no evidence of aortic aneurysm or dissection. The heart is mildly enlarged. No mediastinal or hilar adenopathy is seen. There is moderate atelectasis/consolidation posteriorly in the left lower lobe. There is minimal dependent atelectasis posteriorly on the right. A calcified granuloma is present in the right lower lobe. No significant pleural fluid is identified. The liver is of lower than normal density compatible with fatty change. The gallbladder is surgically absent. IMPRESSION: 1. No CT evidence of central pulmonary emboli. 2. Moderate atelectasis/consolidation posteriorly in the left lower lobe. 3. Hepatic steatosis. PQRS Compliance Statement: One or more of the following individualized dose reduction techniques were utilized for this examination: 1. Automated exposure control 2. Adjustment of the mA and/or kV according to patient size 3. Use of iterative reconstruction technique
[2017-03-10] MEDS: MORPHINE SULFATE 2 MG/ML DISP.SYRIN. IV PRN ×2 (14:50→17:44)
[2017-03-10] MEDS ORDERED: VANCOMYCIN 2 GM in IV NORMAL SALINE 500ML 500 ML IV ONE ×2 (15:00→18:00)
[2017-03-10 15:26] VITALS: BP 101/67
[2017-03-10] MEDS: VANCOMYCIN PER PHARMACY MC PRN (16:02)
[2017-03-10] MEDS ORDERED: ONDANSETRON ODT 4 MG TAB.RAPDIS PO PRN (17:30)
[2017-03-10] MEDS: fentaNYL 25MCG/HR 1 PATCH PATCH TD SCH (18:09)
[2017-03-10 19:37] VITALS: BP 103/66
[2017-03-10] MEDS: CEFEPIME HCL IV Push 2 GM VIAL. IVP SCH (20:18)
[2017-03-10] MEDS: FAMOTIDINE 20 MG TABLET PO SCH (20:18)
[2017-03-10] MEDS: CYCLOBENZAPRINE 10 MG TABLET. PO PRN (20:19)
[2017-03-10] MEDS: METOPROLOL TART IMMED RELEASE 50 MG TABLET PO SCH (20:19)
[2017-03-10] MEDS: MORPHINE ER 30 MG TABLET.ER PO SCH (20:19)
[2017-03-10] MEDS: ATORVASTATIN CALCIUM 20 MG TABLET PO SCH (20:19)
--- NOTE | 2017-03-10 21:07 | HP ---
ADMIT DATE: 03/10/2017 HISTORY OF PRESENT ILLNESS: A 67-year-old female came in through the Emergency Room with generalized weakness, feeling fever or chills for 1 day prior to admission. The patient did not receive a flu shot this year. She attempted some Tylenol. She got increasingly worse, came in through the Emergency Room and was found to have an elevated lactic acid, borderline as well as a left lower lobe consolidation consistent with pneumonia. The patient's vital signs include blood pressure 101/67, respiratory rate 20, pulse 107, temperature 98.7. LABORATORY DATA: The patient's platelets were slightly low at 122. In any case, the patient was admitted for pneumonia, possible sepsis, make further evaluation on her as indicated. PAST MEDICAL HISTORY: Hypercholesterol, hypertension, COPD, BiPAP at bedtime, anxiety, cancer, skin cancer. IMMUNIZATIONS: Not up-to-date as far as her flu and Pneumovax shots. FAMILY HISTORY: Unremarkable. ALLERGIES: No known allergies. HOME MEDICATIONS: Include Lipitor 20 mg daily, Flexeril p.r.n., Pepcid 20 mg b.i.d., fentanyl patch, furosemide 10 mg, DuoNeb treatments, Cozaar 50 mg, metoprolol 50 mg, morphine sulfate and Zofran. ALLERGIES: IODINE CONTRAST, ORAL AND IV DYE, AZITHROMYCIN, AND CODEINE. SOCIAL HISTORY: No smoking, alcohol or drug use. REVIEW OF SYSTEMS: Positive for fever, chills, also some chest discomfort noted as well. The patient notes that of chest pain nonradiating, does have shortness of breath, cough. Denies any abdominal pain, mild nausea, no vomiting. Does have fever or chills. Denies any problems. MUSCULOSKELETAL: Except for generalized arthritis, neurologically intact. PHYSICAL EXAMINATION: GENERAL: An ill-appearing white female, in moderate amount of distress. VITAL SIGNS: Blood pressure 130/80, pulse 124, temperature 103.6, respiratory rate 24, and 94% on room air. HEENT: The patient's head was atraumatic, normocephalic. Eyes: PERRLA without jaundice. Mouth and throat were normal. NECK: Supple, without JVD or thyromegaly. LUNGS: Diminished, particularly in the left lower lobe. CARDIOVASCULAR: Regular sinus rhythm, tachy. ABDOMEN: Soft, nontender, no rebounding or guarding. Positive bowel sounds, no hepatosplenomegaly, protuberant. EXTREMITIES: No clubbing, cyanosis, nor edema. NEUROLOGIC: The patient was alert and oriented x 3. Speech fluent, spontaneous, appropriate. Cranial nerves 2-12 are grossly intact. The patient was admitted for further evaluation and treatment of sepsis. IMPRESSION: Pneumonia of unspecified etiology, community acquired, chest pain, elevated liver enzymes, thrombocytopenia. PLAN: Continue on vancomycin and Levaquin and make further evaluation on her as indicated with breathing treatments and her home medications. BREE RICHARDS MD DR: VAHID/yuri JOB#: [id number] / [id number]
[2017-03-10] MEDS: IPRATRPIUM/ALBUTEROL 0.5/2.5MG 3 ML NEBU. NEB SCH (21:40)
[2017-03-10] MEDS ORDERED: CEFEPIME HCL 2 GM in IV NORMAL SALINE 100ML 100 ML IV SCH (22:00)
[2017-03-10 23:09] VITALS: BP 102/65
[2017-03-11] MEDS: MORPHINE SULFATE 2 MG/ML DISP.SYRIN. IV PRN (02:43)
[2017-03-11] MEDS: CEFEPIME HCL IV Push 2 GM VIAL. IVP SCH ×3 (04:45→19:52)
[2017-03-11] MEDS: VANCOMYCIN 1.25 GM in IV NORMAL SALINE 250ML 250 ML IV SCH ×2 (04:59→18:04)
[2017-03-11 05:35] VITALS: BP 99/54
[2017-03-11] MEDS: IPRATRPIUM/ALBUTEROL 0.5/2.5MG 3 ML NEBU. NEB SCH ×3 (05:41→20:50)
[2017-03-11] MEDS: FAMOTIDINE 20 MG TABLET PO SCH ×2 (08:20→19:58)
[2017-03-11] MEDS: FUROSEMIDE 20 MG TABLET PO SCH (08:21)
[2017-03-11] MEDS: MORPHINE ER 30 MG TABLET.ER PO SCH ×2 (08:21→19:58)
[2017-03-11] MEDS: LOSARTAN 50 MG TABLET. PO SCH (09:00)
[2017-03-11] MEDS: METOPROLOL TART IMMED RELEASE 50 MG TABLET PO SCH ×2 (09:00→19:58)
[2017-03-11 10:35] VITALS: BP 103/61
[2017-03-11] MEDS: LACTOBACILLUS RHAMNOSUS GG 1 CAPSULE. PO SCH ×2 (12:25→19:57)
[2017-03-11 15:17] VITALS: BP 119/52
[2017-03-11] MEDS: fentaNYL 25MCG/HR 1 PATCH PATCH TD SCH (18:06)
[2017-03-11] MEDS: CYCLOBENZAPRINE 10 MG TABLET. PO PRN (18:10)
[2017-03-11 19:25] VITALS: BP 118/90
[2017-03-11] MEDS: ATORVASTATIN CALCIUM 20 MG TABLET PO SCH (19:57)
[2017-03-11 23:14] VITALS: BP 115/60
[2017-03-12] MEDS: CYCLOBENZAPRINE 10 MG TABLET. PO PRN ×2 (03:27→21:30)
[2017-03-12] MEDS: CEFEPIME HCL IV Push 2 GM VIAL. IVP SCH ×3 (04:45→21:29)
[2017-03-12 05:10] VITALS: BP 110/74
[2017-03-12] MEDS: IPRATRPIUM/ALBUTEROL 0.5/2.5MG 3 ML NEBU. NEB SCH ×3 (05:22→21:14)
[2017-03-12 07:02] LABS: VANC TR 13.4 mcg/mL (10.0-20.0)
[2017-03-12] MEDS: MORPHINE ER 30 MG TABLET.ER PO SCH ×2 (08:02→21:31)
[2017-03-12] MEDS: LACTOBACILLUS RHAMNOSUS GG 1 CAPSULE. PO SCH ×2 (08:02→21:30)
[2017-03-12] MEDS: LOSARTAN 50 MG TABLET. PO SCH (08:02)
[2017-03-12] MEDS: FAMOTIDINE 20 MG TABLET PO SCH ×2 (08:02→21:30)
[2017-03-12] MEDS: FUROSEMIDE 20 MG TABLET PO SCH (08:03)
[2017-03-12] MEDS: METOPROLOL TART IMMED RELEASE 50 MG TABLET PO SCH ×2 (08:03→21:30)
[2017-03-12] MEDS: VANCOMYCIN 1.25 GM in IV NORMAL SALINE 250ML 250 ML IV SCH (08:03)
[2017-03-12] MEDS: VANCOMYCIN PER PHARMACY MC PRN (08:55)
[2017-03-12 10:49] VITALS: BP 127/73
[2017-03-12 15:53] VITALS: BP 122/78
--- NOTE | 2017-03-12 17:58 | PN ---
DATE: 03/11/2017 SUBJECTIVE: A 67-year-old female in with pneumonia. The patient is feeling somewhat better and making fairly good progress, but still requiring IV antibiotic therapy and the alike. Otherwise, she is resting fairly comfortably, making fairly good progress overall. OBJECTIVE: VITAL SIGNS: Blood pressure 120/50, respiratory rate 20, pulse 90, afebrile. LUNGS: Diminished crackles in the bases. CARDIOVASCULAR: Regular sinus rhythm. ABDOMEN: Soft, protuberant. EXTREMITIES: No clubbing, cyanosis or edema. NEUROLOGIC: Intact. IMPRESSION: Pneumonia of unspecified etiology, elevated liver enzymes, morbid obesity, moderate protein malnutrition. PLAN: Continue with IV antibiotic therapy and make further evaluation on her as indicated. BREE RICHARDS MD DR: VAHID/yuri JOB#: [id number] / [id number]
[2017-03-12] MEDS: VANCOMYCIN 1.5 GM in IV NORMAL SALINE 500ML 500 ML IV SCH (19:20)
[2017-03-12 20:53] VITALS: BP 130/86
[2017-03-12] MEDS: ATORVASTATIN CALCIUM 20 MG TABLET PO SCH (21:30)
[2017-03-12 23:26] VITALS: BP 133/65
[2017-03-13] MEDS ORDERED: guaiFENesin DM 200MG/20MG 10 ML SYRUP PO PRN (01:30)
[2017-03-13] MEDS: CEFEPIME HCL IV Push 2 GM VIAL. IVP SCH ×3 (05:02→20:30)
[2017-03-13] MEDS: VANCOMYCIN 1.5 GM in IV NORMAL SALINE 500ML 500 ML IV SCH ×2 (05:03→19:30)
[2017-03-13] MEDS: IPRATRPIUM/ALBUTEROL 0.5/2.5MG 3 ML NEBU. NEB SCH ×3 (05:14→20:45)
[2017-03-13 06:43] VITALS: BP 119/69
[2017-03-13] MEDS: LACTOBACILLUS RHAMNOSUS GG 1 CAPSULE. PO SCH ×2 (08:28→20:31)
[2017-03-13] MEDS: METOPROLOL TART IMMED RELEASE 50 MG TABLET PO SCH ×2 (08:28→20:31)
[2017-03-13] MEDS: LOSARTAN 50 MG TABLET. PO SCH (08:29)
[2017-03-13] MEDS: FUROSEMIDE 20 MG TABLET PO SCH (08:29)
[2017-03-13] MEDS: FAMOTIDINE 20 MG TABLET PO SCH ×2 (08:29→20:31)
[2017-03-13] MEDS: MORPHINE ER 30 MG TABLET.ER PO SCH ×2 (08:32→20:31)
[2017-03-13] MEDS: fentaNYL 25MCG/HR 1 PATCH PATCH TD SCH (08:33)
[2017-03-13 11:03] VITALS: BP 127/70
[2017-03-13 14:42] VITALS: BP 126/80
[2017-03-13 19:00] VITALS: BP 141/79
[2017-03-13 19:08] LABS: VANC TR 15.3 mcg/mL (10.0-20.0)
[2017-03-13] MEDS: VANCOMYCIN PER PHARMACY MC PRN (19:16)
--- NOTE | 2017-03-13 20:27 | PN ---
DATE: 03/12/2017 SUBJECTIVE: A 67-year-old female with pneumonia. The patient is resting fairly comfortably, although she is still very weak. The patient's blood cultures have been negative, sputums have been negative so far, now reported. PHYSICAL EXAMINATION: VITAL SIGNS: Blood pressure 120/80, respiratory rate 20, pulse 70, afebrile. GENERAL: The patient is alert and oriented. LUNGS: Diminished, but clear than they have been, she is better. CARDIOVASCULAR: Regular sinus rhythm. ABDOMEN: Protuberant, soft, still weak. PLAN: Continue IV antibiotic therapy and continue to monitor the patient accordingly and make further evaluation with breathing treatments and the like. IMPRESSION: Pneumonia of unspecified etiology. BREE RICHARDS MD DR: VAHID/yuri JOB#: [id number] / [id number]
[2017-03-13] MEDS: CYCLOBENZAPRINE 10 MG TABLET. PO PRN (20:31)
[2017-03-13] MEDS: ATORVASTATIN CALCIUM 20 MG TABLET PO SCH (20:31)
[2017-03-13 23:00] VITALS: BP 110/57
[2017-03-14] MEDS: CEFEPIME HCL IV Push 2 GM VIAL. IVP SCH ×3 (04:07→20:40)
--- NOTE | 2017-03-14 04:09 | PN ---
DATE: 03/13/2017 SUBJECTIVE: The patient in with pneumonia, exacerbation of COPD. Apparently, had a rough night, stated that she was having problems, IV came out and spiked another temperature. She continues on IV antibiotics including vancomycin and Levaquin. The patient had a low-grade temperature last night about 100 degrees. OBJECTIVE: VITAL SIGNS: Blood pressure 133/65, respiratory rate 20, pulse 105. GENERAL: The patient alert and oriented. LUNGS: Diminished, but clear than they have been. CARDIOVASCULAR: Regular sinus rhythm. ABDOMEN: Soft, nontender. We will go ahead and continue to monitor the patient accordingly on all these situations. IMPRESSION: Pneumonia of unspecified etiology, community acquired; chronic obstructive pulmonary disease. PLAN: Continue to monitor the patient accordingly, make further evaluation on her. Continue with IV antibiotic therapy, aggressive pulmonary toilet and hopefully ready for discharge in the a.m. BREE RICHARDS MD DR: VAHID/yuri JOB#: [id number] / [id number]
[2017-03-14] MEDS: CYCLOBENZAPRINE 10 MG TABLET. PO PRN (04:15)
[2017-03-14 05:30] VITALS: BP 135/83
[2017-03-14] MEDS: IPRATRPIUM/ALBUTEROL 0.5/2.5MG 3 ML NEBU. NEB SCH ×3 (05:38→20:38)
[2017-03-14] MEDS: VANCOMYCIN 1.5 GM in IV NORMAL SALINE 500ML 500 ML IV SCH ×2 (05:48→17:52)
[2017-03-14] MEDS: MORPHINE ER 30 MG TABLET.ER PO SCH ×2 (09:15→20:41)
[2017-03-14] MEDS: METOPROLOL TART IMMED RELEASE 50 MG TABLET PO SCH ×2 (09:15→20:41)
[2017-03-14] MEDS: FUROSEMIDE 20 MG TABLET PO SCH (09:15)
[2017-03-14] MEDS: LOSARTAN 50 MG TABLET. PO SCH (09:15)
[2017-03-14] MEDS: FAMOTIDINE 20 MG TABLET PO SCH ×2 (09:15→20:41)
[2017-03-14] MEDS: LACTOBACILLUS RHAMNOSUS GG 1 CAPSULE. PO SCH ×2 (09:15→20:40)
--- NOTE | 2017-03-14 09:23 | RAD ---
Chest, 2 views, 03/14/2017: History: Pneumonia Comparison is made to a study from 03/10/2017. The heart size and pulmonary vascularity are normal. There is a density in the posterior costophrenic angle on the left as seen on the lateral view. The appearance suggests pleural fluid with mild underlying atelectasis/infiltrate. Pulmonary consolidation was present in this region on the 03/10/2017 CT study. The right chest is clear. No right-sided pleural fluid is evident. IMPRESSION: Residual density in the posterior costophrenic angle on the left suggesting a combination of pleural fluid and mild atelectasis/infiltrate. Further imaging follow-up is suggested to exclude an underlying neoplasm.
[2017-03-14 10:18] LABS: CALCIUM 8.9 mg/dL (8.5-10.1); CREATININE 0.7 mg/dL (0.6-1.0); GFR 83.5; POTASSIUM 4.1 mmol/L (3.5-5.1)
[2017-03-14 11:06] VITALS: BP 142/79
[2017-03-14 14:44] VITALS: BP 120/80
[2017-03-14] MEDS ORDERED: levoFLOXacin 750 MG TABLET PO SCH (16:30)
[2017-03-14 19:27] VITALS: BP 132/80
[2017-03-14] MEDS: ATORVASTATIN CALCIUM 20 MG TABLET PO SCH (20:41)
--- NOTE | 2017-03-14 22:27 | PN ---
DATE: SUBJECTIVE: The patient is still having severe bronchospasm, resting fairly comfortably, making some progress overall. PHYSICAL EXAMINATION: VITAL SIGNS: Blood pressure 150/90, respiratory rate 20, pulse 60, afebrile. GENERAL: The patient is alert and oriented. LUNGS: Diminished, poor movement of air. CARDIOVASCULAR: Regular sinus rhythm, S1, S2, without murmur, rub, thrill, or extra heart sound. ABDOMEN: Soft, nontender. IMPRESSION: Pneumonia, acute exacerbation of chronic obstructive pulmonary disease. Continue antibiotics. Get chest x-ray and make further evaluation at that time. BREE RICHARDS MD DR: VAHID/yuri JOB#: [id number] / [id number]
[2017-03-14 23:20] VITALS: BP 153/88
[2017-03-15] MEDS: CEFEPIME HCL IV Push 2 GM VIAL. IVP SCH (03:52)
[2017-03-15] MEDS: CYCLOBENZAPRINE 10 MG TABLET. PO PRN (05:01)
[2017-03-15] MEDS: VANCOMYCIN 1.5 GM in IV NORMAL SALINE 500ML 500 ML IV SCH (05:02)
[2017-03-15 05:43] VITALS: BP 147/74
[2017-03-15] MEDS: IPRATRPIUM/ALBUTEROL 0.5/2.5MG 3 ML NEBU. NEB SCH (06:01)
[2017-03-15 06:51] LABS: BASO % 0 % (0-3); EOS # 0.1 x10^3/uL (0.0-0.7); EOS % 3 % (0-3); HEMATOCRIT 29.7 % (36.0-47.0); LYMPH # 1.1 x10^3/uL (1.0-4.8); LYMPH % 36 % (24-48); MEAN CORPUSCULAR HEMOGLOBIN 30 pg (25-35); MEAN CORPUSCULAR HGB CONC 34 g/dL (31-37); MEAN CORPUSCULAR VOLUME 89 fL (79-100); MONO # 0.4 x10^3/uL (0.0-1.1); MONO % 12 % (0-9); NEUT # 1.5 x10^3uL (1.8-7.7); NEUT % 48 % (31-73); PLATELET COUNT 138 x10^3/uL (140-400); RED BLOOD COUNT 3.35 x10^6/uL (3.50-5.40); RED CELL DISTRIBUTION WIDTH 13.8 % (11.5-14.5)
[2017-03-15 07:24] LABS: ALBUMIN 2.4 g/dL (3.4-5.0); ALBUMIN/GLOBULIN RATIO 0.7 (1.0-1.7); CALCIUM 8.5 mg/dL (8.5-10.1); CREATININE 0.6 mg/dL (0.6-1.0); GFR 99.7; POTASSIUM 3.8 mmol/L (3.5-5.1); TOTAL BILIRUBIN 0.6 mg/dL (0.2-1.0); TOTAL PROTEIN 5.9 g/dL (6.4-8.2)
[2017-03-15] MEDS: FAMOTIDINE 20 MG TABLET PO SCH (08:30)
[2017-03-15] MEDS: LOSARTAN 50 MG TABLET. PO SCH (08:30)
[2017-03-15] MEDS: MORPHINE ER 30 MG TABLET.ER PO SCH (08:31)
[2017-03-15 08:32] VITALS: BP 147/74
[2017-03-15] MEDS: LACTOBACILLUS RHAMNOSUS GG 1 CAPSULE. PO SCH (08:32)
[2017-03-15] MEDS: METOPROLOL TART IMMED RELEASE 50 MG TABLET PO SCH (08:32)
[2017-03-15] MEDS: FUROSEMIDE 20 MG TABLET PO SCH (08:32)
== END 2017-03-15 10:15 | disposition home or self-care (01) | DRG 871 ==
LOC: ER 10:46 → 1 SOUTH 13:32
PROVIDERS: ADMIT Family Medicine; ATTEND Family Medicine
DX: A41.9 Sepsis, unspecified organism (principal); J10.08 Influenza due to other identified influenza virus with other specified pneumonia; E44.0 Moderate protein-calorie malnutrition; D69.6 Thrombocytopenia, unspecified; J18.1 Lobar pneumonia, unspecified organism; E66.01 Morbid (severe) obesity due to excess calories; J44.0 Chronic obstructive pulmonary disease with (acute) lower respiratory infection; Z68.41 Body mass index [BMI] 40.0-44.9, adult; J44.1 Chronic obstructive pulmonary disease with (acute) exacerbation; K76.0 Fatty (change of) liver, not elsewhere classified; E78.00 Pure hypercholesterolemia, unspecified; I10 Essential (primary) hypertension; F41.9 Anxiety disorder, unspecified; J98.01 Acute bronchospasm; M79.7 Fibromyalgia; Y95 Nosocomial condition; Z85.828 Personal history of other malignant neoplasm of skin; Z90.710 Acquired absence of both cervix and uterus; Z88.8 Allergy status to other drugs, medicaments and biological substances; Z88.1 Allergy status to other antibiotic agents; Z91.041 Radiographic dye allergy status
CPT/HCPCS: 36415; 71045; 71046; 71275; 80048; 80053; 80202; 81001; 83605; 84484; 85025; 87040; 87804; 93005; 94640; 96361; 96365; 96375; J0692; J1885; J1956; J2270; J2405; J3010; J3370; J7040; J7050; J7620; Q0162; Q9967; 97110; 97530; 97535; 99285-25; J7030

== ENCOUNTER 2017-10-06 14:41 | Emergency (ER) | payer MEDICARE, OTHER ==
[~2017-10-06] VITALS: Ht 142.2 cm; Wt 76.7 kg
[~2017-10-06 14:41] MED LIST changes: -IPRA3AMP NEB; +IPRA3AMP29 NEB
--- NOTE | 2017-10-06 15:11 | EKG ---
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
[2017-10-06] MEDS: ONDANSETRON PF 4 MG/2 ML VIAL. IV ONE (15:40)
[2017-10-06] MEDS: IV NORMAL SALINE 1,000ML 1,000 ML IV SCH (15:40)
[2017-10-06] MEDS ORDERED: ONDANSETRON ODT 4 MG TAB.RAPDIS PO ONE (15:45)
[2017-10-06 15:46] LABS: BASO % 0 % (0-3); EOS % 1 % (0-3); HEMATOCRIT 40.5 % (36.0-47.0); HEMOGLOBIN 13.4 g/dL (12.0-15.5); LYMPH # 1.2 x10^3/uL (1.0-4.8); LYMPH % 20 % (24-48); MEAN CORPUSCULAR HEMOGLOBIN 29 pg (25-35); MEAN CORPUSCULAR HGB CONC 33 g/dL (31-37); MEAN CORPUSCULAR VOLUME 89 fL (79-100); MONO # 0.4 x10^3/uL (0.0-1.1); MONO % 6 % (0-9); NEUT # 4.5 x10^3uL (1.8-7.7); NEUT % 73 % (31-73); PLATELET COUNT 143 x10^3/uL (140-400); RED BLOOD COUNT 4.57 x10^6/uL (3.50-5.40); RED CELL DISTRIBUTION WIDTH 14.6 % (11.5-14.5); WHITE BLOOD COUNT 6.1 x10^3/uL (4.0-11.0)
[2017-10-06 16:09] LABS: ALBUMIN 4.1 g/dL (3.4-5.0); ALBUMIN/GLOBULIN RATIO 1.1 (1.0-1.7); ALK PHOS 71 U/L (46-116); ALT (SGPT) 45 U/L (14-59); ANION GAP 13 (6-14); AST (SGOT) 38 U/L (15-37); BLOOD UREA NITROGEN 10 mg/dL (7-20); BUN/CREATININE RATIO 14 (6-20); CALCIUM 9.1 mg/dL (8.5-10.1); CARBON DIOXIDE 24 mmol/L (21-32); CHLORIDE 106 mmol/L (98-107); CREATININE 0.7 mg/dL (0.6-1.0); GFR 83.5; GLUCOSE 129 mg/dL (70-99); LIPASE 94 U/L (73-393); POTASSIUM 3.8 mmol/L (3.5-5.1); SODIUM 143 mmol/L (136-145); TOTAL BILIRUBIN 0.5 mg/dL (0.2-1.0); TOTAL PROTEIN 7.7 g/dL (6.4-8.2)
[2017-10-06] MEDS: METOCLOPRAMIDE HCL 10 MG/2 ML VIAL. IV ONE (16:27)
[2017-10-06 17:18] LABS: BACTERIA,URINE 0 /HPF (0-FEW); BILIRUBIN,URINE NEG (NEG); CLARITY,URINE HAZY; COLOR,URINE AMBER; GLUCOSE,URINE NEG (NEG); NITRITE,URINE NEG (NEG); RBC,URINE OCC /HPF (0-2); SQUAMOUS EPITHELIAL CELL,UR FEW /LPF; UROBILINOGEN,URINE 0.2 mg/dL (0.2 mg/dL); WBC,URINE RARE /HPF (0-4)
--- NOTE | 2017-10-06 17:40 | PHYS DOC ---
Past History Past Medical History: COPD, Fibromyalgia, High Cholesterol, Hypertension Additional Past Medical Histor: chronic pain Past Surgical History: , Hysterectomy Smoking: Non-smoker Alcohol Use: None Drug Use: None Adult General Chief Complaint Chief Complaint: NAUSEA/VOMITING HPI HPI Patient is a 67 year old female with history of fibromyalgia and hypertension and dyslipidemia and COPD without home oxygen who presents with complaining of nausea since yesterday and 6 episodes of vomiting today without abdominal pain, urinary symptom, fever and chills, chest pain, diarrhea and constipation, previous history of nausea and vomiting patient complaining of generalized weakness and decrease of appetite. Patient had history of cholecystectomy. Review of Systems Review of Systems Constitutional: Denies fever or chills [] Eyes: Denies change in visual acuity, redness, or eye pain [] HENT: Denies nasal congestion or sore throat [] Respiratory: Denies cough or shortness of breath [] Cardiovascular: No additional information not addressed in HPI [] GI: Denies abdominal pain, bloody stools or diarrhea, reports nausea and vomiting : Denies dysuria or hematuria [] Musculoskeletal: Denies back pain or joint pain [] Integument: Denies rash or skin lesions [] Neurologic: Denies headache, focal weakness or sensory changes [] Endocrine: Denies polyuria or polydipsia [] All other systems were reviewed and found to be within normal limits, except as documented in this note. Current Medications Current Medications Current Medications Medications (Trade) Dose Ordered Sig/Aleyda Start Time Stop Time Status Last Admin Dose Admin Metoclopramide HCl (Reglan Vial) 10 mg 1X ONCE 10/06/17 16:30 10/06/17 16:31 DC 10/06/17 16:27 10 MG Ondansetron HCl (Zofran Odt) 8 mg 1X ONCE 10/06/17 15:45 10/06/17 15:46 DC Ondansetron HCl (Zofran) 4 mg 1X ONCE 10/06/17 15:15 10/06/17 15:16 DC 10/06/17 15:40 4 MG Sodium Chloride 1,000 ml @ 1,000 mls/hr Q1H 10/06/17 14:54 10/06/17 15:53 DC 10/06/17 15:40 1,000 MLS/HR Allergies Allergies Allergies Coded Allergies Type Severity Reaction Last Updated Verified azithromycin Allergy Severe Rash 02/22/17 Yes codeine Allergy Intermediate 10/20/16 Yes Iodinated Contrast- Oral and IV Dye Allergy Mild 03/10/17 Yes Physical Exam Physical Exam Constitutional: Well developed, well nourished, moderate distress, non-toxic appearance. [] HENT: Normocephalic, atraumatic, bilateral external ears normal, oropharynx moist, no oral exudates, nose normal. [] Eyes: PERRLA, EOMI, conjunctiva normal, no discharge. [] Neck: Normal range of motion, no tenderness, supple, no stridor. [] Cardiovascular:Heart rate regular rhythm, no murmur [] Lungs & Thorax: Bilateral breath sounds clear to auscultation [] Abdomen: Bowel sounds normal, soft, no tenderness, no masses, no pulsatile masses. [] Skin: Warm, dry, no erythema, no rash. [] Back: No tenderness, no CVA tenderness. [] Extremities: No tenderness, no cyanosis, no clubbing, ROM intact, no edema. [] Neurologic: Alert and oriented X 3, normal motor function, normal sensory function, no focal deficits noted. [] Psychologic: Affect normal, judgement normal, mood normal. [] Current Patient Data Vital Signs Vital Signs Date Time Temp Pulse Resp B/P (MAP) Pulse Ox O2 Delivery O2 Flow Rate FiO2 10/06/17 14:45 98.1 82 24 95 Room Air Lab Results Laboratory Tests Test 10/06/17 15:15 10/06/17 15:20 10/06/17 16:45 Sodium Level 143 mmol/L (136-145) Potassium Level 3.8 mmol/L (3.5-5.1) Chloride Level 106 mmol/L (98-107) Carbon Dioxide Level 24 mmol/L (21-32) Anion Gap 13 (6-14) Blood Urea Nitrogen 10 mg/dL (7-20) Creatinine 0.7 mg/dL (0.6-1.0) Estimated GFR (Cockcroft-Gault) 83.5 BUN/Creatinine Ratio 14 (6-20) Glucose Level 129 mg/dL (70-99) H Calcium Level 9.1 mg/dL (8.5-10.1) Total Bilirubin 0.5 mg/dL (0.2-1.0) Aspartate Amino Transferase (AST) 38 U/L (15-37) H Alanine Aminotransferase (ALT) 45 U/L (14-59) Alkaline Phosphatase 71 U/L (46-116) Creatine Kinase 39 U/L (26-192) Creatine Kinase MB (Mass) < 0.5 ng/mL (0.0-3.6) Creatine Kinase MB Relative Index 1.3 % (0-4) Troponin I Quantitative < 0.017 ng/mL (0-0.055) Total Protein 7.7 g/dL (6.4-8.2) Albumin 4.1 g/dL (3.4-5.0) Albumin/Globulin Ratio 1.1 (1.0-1.7) Lipase 94 U/L (73-393) White Blood Count 6.1 x10^3/uL (4.0-11.0) Red Blood Count 4.57 x10^6/uL (3.50-5.40) Hemoglobin 13.4 g/dL (12.0-15.5) Hematocrit 40.5 % (36.0-47.0) Mean Corpuscular Volume 89 fL (79-100) Mean Corpuscular Hemoglobin 29 pg (25-35) Mean Corpuscular Hemoglobin Concent 33 g/dL (31-37) Red Cell Distribution Width 14.6 % (11.5-14.5) H Platelet Count 143 x10^3/uL (140-400) Neutrophils (%) (Auto) 73 % (31-73) Lymphocytes (%) (Auto) 20 % (24-48) L Monocytes (%) (Auto) 6 % (0-9) Eosinophils (%) (Auto) 1 % (0-3) Basophils (%) (Auto) 0 % (0-3) Neutrophils # (Auto) 4.5 x10^3uL (1.8-7.7) Lymphocytes # (Auto) 1.2 x10^3/uL (1.0-4.8) Monocytes # (Auto) 0.4 x10^3/uL (0.0-1.1) Eosinophils # (Auto) 0.0 x10^3/uL (0.0-0.7) Basophils # (Auto) 0.0 x10^3/uL (0.0-0.2) Urine Collection Type Unknown Urine Color [place] Urine Clarity Hazy Urine pH 6.0 Urine Specific [place] 1.025 Urine Protein 30 mg/dl (NEG-TRACE) Urine Glucose (UA) Neg mg/dL (NEG) Urine Ketones (Stick) 80 mg/dL (NEG) Urine Blood Small (NEG) Urine Nitrite Neg (NEG) Urine Bilirubin Neg (NEG) Urine Urobilinogen Dipstick 0.2 mg/dL (0.2 mg/dL) Urine Leukocyte Esterase Neg (NEG) Urine RBC Occ /HPF (0-2) Urine WBC Rare /HPF (0-4) Urine Squamous Epithelial Cells Few /LPF Urine Bacteria 0 /HPF (0-FEW) Urine Mucus Mod /LPF EKG EKG EKG interpreted by me. EKG at 1458 showed normal sinus rhythm at rate of 78, prolonged QT, no acute ST and T wave abnormality.[] Radiology/Procedures Radiology/Procedures [] Course & Med Decision Making Course & Med Decision Making Pertinent Labs and Imaging studies reviewed. (See chart for details) Evaluation of patient in ER showed 67-year-old female patient with complaining of nausea since yesterday and frequent episodes of vomiting today with generalized weakness without abdominal pain and other symptoms. Patient had mild elevation of blood pressure without tachycardia and fever. Patient treated with IV fluid, Zofran, Reglan and felt better. Patient tolerated oral intake. Patient prefers to go home. Patient tolerated oral intake and instructed to follow with liquid diet and follow up with her primary care physician. [] Dragon Disclaimer Dragon Disclaimer This electronic medical record was generated, in whole or in part, using a voice recognition dictation system. Departure Departure: Impression: Primary Impression: Acute gastritis Disposition: HOME, SELF-CARE (At 1802) Condition: IMPROVED Referrals: BREE RICHARDS MD (PCP) Patient Instructions: Nausea and Vomiting Additional Instructions: Drink plenty of liquids Follow-up with your primary care physician in 3-5 days Return to ER if not getting better Scripts Metoclopramide Hcl (REGLAN) 10 Mg Tablet 1 TAB PO TID, #20 TAB Prov: NADYA GOMEZ MD 10/06/17 NADYA GOMEZ MD Oct 06, 2017 17:40
--- NOTE | 2017-10-06 17:53 | RAD ---
PQRS Compliance statement: One or more of the following individualized dose reduction techniques were utilized for this examination: 1. Automated exposure control. 2. Adjustment of the mA and/or kV according to patient size. 3. Use of iterative reconstruction technique. Indication:HYPERTENSION, HEADACHE,DIZZINESS, NAUSEA TECHNIQUE: CT head without IV contrast COMPARISON:None FINDINGS: No pathologic extra-axial or intra-axial fluid collection. The ventricles and basal cisterns are within normal limits. No acute intracranial bleed. No focal loss of meyers-white differentiation. Visualized orbits within normal limits. No suspicious calvarial lesions. Visualized paranasal sinuses and mastoid air cells are clear. IMPRESSION: No acute intracranial process. If concern for acute ischemic stroke is high, please consider MRI brain. Electronically signed by: Leonardo Timmons DO (10/06/2017 5:50 PM) [facility]
[2017-10-06] MEDS ORDERED: METO10TA81 PO (18:03)
[2017-10-06 18:10] VITALS: BP 170/99
== END 2017-10-06 18:37 | disposition home or self-care (01) ==
LOC: ER 14:41
DX: K29.00 Acute gastritis without bleeding (principal); B96.89 Other specified bacterial agents as the cause of diseases classified elsewhere; J44.9 Chronic obstructive pulmonary disease, unspecified; M79.7 Fibromyalgia; E78.00 Pure hypercholesterolemia, unspecified; I10 Essential (primary) hypertension; E78.5 Hyperlipidemia, unspecified; G89.29 Other chronic pain; Z90.710 Acquired absence of both cervix and uterus; Z98.890 Other specified postprocedural states; Z90.49 Acquired absence of other specified parts of digestive tract; Z88.1 Allergy status to other antibiotic agents; Z88.5 Allergy status to narcotic agent; Z91.041 Radiographic dye allergy status
CPT/HCPCS: 36415; 70450; 80053; 81001; 82553; 83690; 84484; 85025; 93005; 96361; 96374; 96375; J2405; J2765; 99285-25; J7030

== ENCOUNTER 2017-10-08 18:58 | Inpatient (IN) | payer MEDICARE, OTHER ==
[~2017-10-08] VITALS: Ht 142.2 cm; Wt 75.0 kg
[~2017-10-08 18:58] MED LIST changes: +METO10TA81 PO
[2017-10-08 19:19] VITALS: BP 160/94
[2017-10-08] MEDS ORDERED: POTASSIUM CHLORIDE 30 MEQ in IV 1/2 NORMAL SALINE 1,000 ML IV SCH (19:30)
[2017-10-08 20:44] LABS: BASO # 0.1 x10^3/uL (0.0-0.2); BASO % 1 % (0-3); EOS % 1 % (0-3); HEMATOCRIT 40.6 % (36.0-47.0); HEMOGLOBIN 13.7 g/dL (12.0-15.5); LYMPH # 2.3 x10^3/uL (1.0-4.8); LYMPH % 30 % (24-48); MEAN CORPUSCULAR HEMOGLOBIN 29 pg (25-35); MEAN CORPUSCULAR HGB CONC 34 g/dL (31-37); MEAN CORPUSCULAR VOLUME 87 fL (79-100); MONO # 0.7 x10^3/uL (0.0-1.1); MONO % 9 % (0-9); NEUT # 4.6 x10^3uL (1.8-7.7); NEUT % 59 % (31-73); PLATELET COUNT 189 x10^3/uL (140-400); RED BLOOD COUNT 4.67 x10^6/uL (3.50-5.40); RED CELL DISTRIBUTION WIDTH 14.7 % (11.5-14.5); WHITE BLOOD COUNT 7.7 x10^3/uL (4.0-11.0)
[2017-10-08] MEDS ORDERED: POTASSIUM CHLORIDE 10MEQ 50 ML IV ONE (21:04)
[2017-10-08] MEDS ORDERED: POTASSIUM CL 20MEQ-0.45% NACL 1,000 ML IV ONE (21:05)
[2017-10-08 21:33] LABS: AMYLASE 53 U/L (25-115); LIPASE 247 U/L (73-393)
[2017-10-08 21:39] LABS: ALBUMIN 3.9 g/dL (3.4-5.0); CALCIUM 8.8 mg/dL (8.5-10.1); CREATININE 0.7 mg/dL (0.6-1.0); GFR 83.5; POTASSIUM 3.5 mmol/L (3.5-5.1); TOTAL BILIRUBIN 0.5 mg/dL (0.2-1.0); TOTAL PROTEIN 7.8 g/dL (6.4-8.2)
[2017-10-08] MEDS: ONDANSETRON ODT 4 MG TAB.RAPDIS PO PRN (22:05)
[2017-10-08] MEDS: METOPROLOL TART IMMED RELEASE 50 MG TABLET PO SCH (22:05)
[2017-10-08] MEDS: MORPHINE ER 30 MG TABLET.ER PO SCH (22:07)
[2017-10-08 22:29] VITALS: BP 160/81
[2017-10-08] MEDS: IPRATRPIUM/ALBUTEROL 0.5/2.5MG 3 ML NEBU. NEB SCH (22:47)
--- NOTE | 2017-10-08 23:03 | EKG ---
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
--- NOTE | 2017-10-09 02:16 | RAD ---
AP upright supine abdomen x-rays HISTORY: Abdominal pain, nausea and diarrhea. FINDINGS: Mild coarse interstitial markings and groundglass density at the lung bases not apparent on prior chest x-rays could indicate mild interstitial edema or atelectasis. No pneumoperitoneum. Cholecystectomy. At the right lower quadrant projecting over the iliac crest there is a 4 mm calcification consistent with a gonadal vein phlebolith present on prior CT imaging in 2007. No abnormal dilation of the bowel loops or air-fluid levels. Bones unremarkable. IMPRESSION: Negative abdomen x-rays. Mild lower lobe interstitial reticulation could be due to mild interstitial edema or areas of atelectasis. Electronically signed by: Bereket Amato MD (10/09/2017 2:13 AM) [facility]
[2017-10-09 04:42] LABS: BACTERIA,URINE FEW /HPF (0-FEW); BILIRUBIN,URINE NEG (NEG); CLARITY,URINE CLEAR; COLOR,URINE AMBER; GLUCOSE,URINE NEG (NEG); NITRITE,URINE NEG (NEG); SQUAMOUS EPITHELIAL CELL,UR FEW /LPF; UROBILINOGEN,URINE 2 mg/dL (0.2 mg/dL); WBC,URINE OCC /HPF (0-4)
[2017-10-09] MEDS: IPRATRPIUM/ALBUTEROL 0.5/2.5MG 3 ML NEBU. NEB SCH ×3 (04:58→19:19)
[2017-10-09 05:22] VITALS: BP 145/82
[2017-10-09 06:32] LABS: CALCIUM 8.4 mg/dL (8.5-10.1); CREATININE 0.6 mg/dL (0.6-1.0); GFR 99.7; POTASSIUM 3.8 mmol/L (3.5-5.1)
[2017-10-09] MEDS: METOPROLOL TART IMMED RELEASE 50 MG TABLET PO SCH ×2 (08:48→20:31)
[2017-10-09] MEDS: LOSARTAN 50 MG TABLET. PO SCH (08:48)
[2017-10-09] MEDS: ONDANSETRON ODT 4 MG TAB.RAPDIS PO PRN ×2 (08:48→20:31)
[2017-10-09] MEDS: FAMOTIDINE 20 MG TABLET PO SCH (08:48)
[2017-10-09] MEDS: MORPHINE ER 30 MG TABLET.ER PO SCH ×2 (08:49→20:34)
[2017-10-09] MEDS ORDERED: fentaNYL 25MCG/HR 1 PATCH PATCH TD SCH (09:00)
--- NOTE | 2017-10-09 11:13 | HP ---
ADMIT DATE: 10/08/2017 HISTORY OF PRESENT ILLNESS: A 67-year-old female came in because of severe nausea, vomiting. The vomiting was so severe, the patient's head is swollen up. She burst her blood vessels she has bilateral raccoon eyes as a result of the pressure from the nausea and vomiting. She had diffuse abdominal pain and was unable to keep anything down. As a result of this, the patient came into the hospital for further evaluation and treatment. The patient in turn receiving IV fluids, IV medications to help her with her vomiting, fluid hydration as she was extremely dehydrated. PAST MEDICAL HISTORY: Cataract, cataract extraction, cardiac catheterization, hypercholesterolemia, hypertension, COPD, pneumonia, sleep apnea, obesity, nausea, vomiting, hysterectomy, tendinitis, carpal tunnel syndrome of right wrist, right shoulder joint replacement. She has skin cancers. Influenza pneumococcal vaccinations are up-to-date. ALLERGIES: IODINE CONTRAST, ORAL IVP DYE, ZITHROMAX, AND CODEINE. MEDICATIONS: Include DuoNeb treatments, Flexeril, Lipitor 20 mg a day, metoprolol 50 mg b.i.d., Cozaar 50 mg a day, fentanyl patch, morphine, Zofran 4 mg p.o. b.i.d., Pepcid 20 mg b.i.d., metoclopramide 10 mg a.c. and at bedtime. FAMILY HISTORY: Unremarkable. SOCIAL HISTORY: No smoking, alcohol, or drug use. Lives at home with her . REVIEW OF SYSTEMS: The patient notes severe nausea, vomiting, swelling to her face. Difficulty in swallowing because of the swelling to the face is markedly noted. Denies chest pain or shortness of breath. Does have diffuse abdominal discomfort, had been having diarrhea here for the last several days, although this morning has been closed and not having any. Otherwise, she denies any neurological phenomenon. PHYSICAL EXAMINATION: VITAL SIGNS: Blood pressure 160/94, respiratory rate 20, pulse 97, afebrile. HEENT: The patient's head was swollen, marked swelling around the eyes with literally ecchymosis to the eyelids and around the eye, raccoon eyes. The patient's vision is good. Eyes are PERRL. Mouth and throat were normal. NECK: Supple without JVD, carotid bruits, or thyromegaly. LUNGS: Diminished, but clear. CARDIOVASCULAR: Regular sinus rhythm. ABDOMEN: Bloated tender, but no rebounding or guarding noted. Hyperactive bowel sounds. EXTREMITIES: No clubbing, cyanosis, or edema. NEUROLOGIC: The patient is alert and oriented x 3, although very difficult to talking because of the swelling to the face, which is markedly noticeable. Her head looks almost twice the size as it normally does. The patient in turn had an abdominal series, which was unremarkable. Her labs do not look out of ordinary, but the patient clinically has been having severe problems with her nausea, vomiting, and now the swollen face which inhibiting her from eating and drinking. IMPRESSION: Dehydration, probable gastroenteritis, ecchymosis around the eyes, increased intracranial pressure, gastroenteritis. PLAN: Continue IV fluids, rest, and further evaluation on her as indicated. She has requested no further labs. BREE RICHARDS MD DR: VAHID/yuri JOB#: [id number] / [id number]
--- NOTE | 2017-10-09 14:05 | RAD ---
CHEST PA LATERAL Clinical indications: Short of breath, pt unable to raise right arm do to shoulder surgery in August 2017 COMPARISON: March 14, 2017. Findings: No acute lung infiltrate or pleural effusion or pulmonary edema or lung mass or pneumothorax is seen. The heart size, pulmonary vasculature, mediastinum and both santosh are unremarkable. The osseous structures appear intact. Right shoulder arthroplasty is evident. Impression: No acute radiographic abnormality is seen. Electronically signed by: Giovanny Hanson MD (10/09/2017 2:02 PM) [facility]
[2017-10-09 15:16] VITALS: BP 154/71
--- NOTE | 2017-10-09 17:54 | RAD ---
Lung scan 10/09/2017 CLINICAL HISTORY: Elevated d-dimer. Shortness of breath. Recent surgery. TECHNIQUE: After the administration of 27.6 mCi of Xenon-133 gas, ventilation images of both lungs were obtained using the gamma camera. After the intravenous administration of 5.5 mCi Technetium 99m MAA, perfusion images of both lungs were obtained using the gamma camera. FINDINGS: Only posterior ventilation images were unable to be obtained due to technical issues with the anterior gamma camera. Comparison is made to portable chest radiograph performed earlier today. This demonstrates mild cardiomegaly. No acute pulmonary infiltrate is seen. Homogeneous ventilation/perfusion to both lungs are seen. No perfusion defect is noted. These findings are consistent with a normal lung scan. IMPRESSION: Normal lung scan. Electronically signed by: Mio Lujan MD (10/09/2017 5:52 PM) [facility]
[2017-10-09] MEDS: IV NORMAL SALINE 1,000ML 1,000 ML IV SCH (18:06)
[2017-10-09 19:21] VITALS: BP 125/76
[2017-10-09 22:59] VITALS: BP 130/80
[2017-10-10 05:14] VITALS: BP 126/73
[2017-10-10] MEDS: IPRATRPIUM/ALBUTEROL 0.5/2.5MG 3 ML NEBU. NEB SCH (05:42)
[2017-10-10] MEDS: IV NORMAL SALINE 1,000ML 1,000 ML IV SCH (08:02)
[2017-10-10] MEDS: MORPHINE ER 30 MG TABLET.ER PO SCH (08:04)
[2017-10-10] MEDS: METOPROLOL TART IMMED RELEASE 50 MG TABLET PO SCH (08:04)
[2017-10-10] MEDS: FAMOTIDINE 20 MG TABLET PO SCH (08:04)
[2017-10-10] MEDS: LOSARTAN 50 MG TABLET. PO SCH (08:05)
[2017-10-10 09:37] VITALS: BP 128/79
--- NOTE | 2017-10-10 10:29 | DS ---
DATE OF DISCHARGE: HOSPITAL COURSE: A 67-year-old female who had severe nausea, vomiting to the point where her face was swollen. She broke blood vessels around the eye have raccoon type of sensation, visualization around her eyes as well as severe pressure behind her eyes. She tried to treat this as an outpatient. She had been to the Emergency Room one time. She went home. She got worse and as a result of this, was brought into the hospital for further evaluation and treatment and control of her nausea, vomiting and dehydration. She was given IV fluids. Her D-dimer was positive, VQ negative. The patient made good progress during the rest of her hospitalization. She was really introduced of food. She made good. See MRAD. Decreased activity. IMPRESSION: Nausea, vomiting, dehydration, broken blood vessels around the eye, swollen face. DISPOSITION: The patient will continue to be monitored as an outpatient, make further evaluation. She was not having any nausea or vomiting at this time. BREE RICHARDS MD DR: VAHID/yuri JOB#: [id number] / [id number]
== END 2017-10-10 10:30 | disposition home or self-care (01) | DRG 641 ==
LOC: 1 SOUTH 18:58
PROVIDERS: ADMIT Family Medicine; ATTEND Family Medicine
DX: E86.0 Dehydration (principal); E78.00 Pure hypercholesterolemia, unspecified; I10 Essential (primary) hypertension; J44.9 Chronic obstructive pulmonary disease, unspecified; R23.3 Spontaneous ecchymoses; Z96.611 Presence of right artificial shoulder joint; E66.9 Obesity, unspecified; G56.01 Carpal tunnel syndrome, right upper limb; Z98.49 Cataract extraction status, unspecified eye; Z85.828 Personal history of other malignant neoplasm of skin; Z90.710 Acquired absence of both cervix and uterus; Z68.37 Body mass index [BMI] 37.0-37.9, adult; Z88.5 Allergy status to narcotic agent; Z88.1 Allergy status to other antibiotic agents; Z91.041 Radiographic dye allergy status; Z87.01 Personal history of pneumonia (recurrent); Z79.899 Other long term (current) drug therapy
CPT/HCPCS: 36415; 71046; 74021; 78582; 80048; 80053; 81001; 82150; 83690; 83880; 85025; 85379; 93005; 94640; 96374; A9540; A9558; J3480; J7620; Q0162; J7030

== ENCOUNTER 2018-02-09 12:05 | Emergency (ER) | payer MEDICARE, OTHER ==
[~2018-02-09] VITALS: Ht 142.2 cm; Wt 73.3 kg
[~2018-02-09 12:05] MED LIST changes: -LOSA50TA2 PO; +LOSA50TA86 PO
--- NOTE | 2018-02-09 12:12 | PHYS DOC ---
Past History Past Medical History: COPD, Fibromyalgia, High Cholesterol, Hypertension Additional Past Medical Histor: chronic pain Past Surgical History: Cholecystectomy, , Hysterectomy Additional Past Surgical Histo: right shoulder sugery Smoking: Non-smoker Alcohol Use: None Drug Use: None Adult General Chief Complaint Chief Complaint: MECHANICAL FALL HPI HPI 68 yo F presenting with a Fall. She was walking outside when she tripped and hit her face, chest/ abd pain and has pain in her right 4th finger and right hand along with her right ankle and foot. It happened today. Mechanical fall. she was brought in by paramedics. ROS neg for neck pain or back pain. Pos for lower chest/sternum and upper abd pain. All other review of systems is negative unless otherwise noted in history of present illness. ED course: 68 yo f who fell from standing with facial injury and multiple areas of pain. xrays were neg. Ct head neck chest/abd pelvis were neg. tetanus is up to date. We will d/c pt to follow up with pcp. The patient has been examined and was not found to have an emergency medical condition. The patient was then discharged home in stable condition to follow up with their primary care physician over the next 1-2 days. They were to return if their symptoms worsened or if they were concerned for any reason. They were also instructed to return to the emergency department if they were unable to get the recommended and appropriate follow-up. [id number] discharge instructions and return precautions were given. Patient's questions were answered to their satisfaction. Patient is comfortable with plan. Review of Systems Review of Systems SEE ABOVE. Allergies Allergies Allergies Coded Allergies Type Severity Reaction Last Updated Verified azithromycin Allergy Severe Rash 02/22/17 Yes codeine Allergy Intermediate 10/20/16 Yes Iodinated Contrast- Oral and IV Dye Allergy Mild 03/10/17 Yes Physical Exam Physical Exam SEE ABOVE Constitutional: Well developed, well nourished, no acute distress, non-toxic appearance. HENT: Normocephalic, abrasion to the nasal bridge with swelling. bilateral external ears normal, oropharynx moist, no oral exudates, nose normal. [] Eyes: PERRLA, EOMI, conjunctiva normal, no discharge. Neck: Normal range of motion, no tenderness, supple, no stridor. [] Cardiovascular:Heart rate regular rhythm, no murmur Lungs & Thorax: Bilateral breath sounds clear to auscultation []. Mild ttp of the sternum without crepitus. Abdomen: Bowel sounds normal, soft, no tenderness, no masses, no pulsatile masses. [] Skin: Warm, dry, no erythema, no rash. Back: No tenderness, no CVA tenderness. [] Extremities: ttp at the right foot and ankle and the right 4th phalynx. nvi in all ext. 2 sec cap refill. other ext are nontender with nl ROM. Neurologic: Alert and oriented X 3, normal motor function, normal sensory function, no focal deficits noted. [] Psychologic: Affect normal, judgement normal, mood normal. EKG EKG [] Radiology/Procedures Radiology/Procedures [] Course & Med Decision Making Course & Med Decision Making Pertinent Labs and Imaging studies reviewed. (See chart for details) [] Dragon Disclaimer Dragon Disclaimer This electronic medical record was generated, in whole or in part, using a voice recognition dictation system. Departure Departure: Impression: Primary Impression: Hand injury Additional Impressions: Foot pain, right Abdominal pain Chest pain Disposition: HOME, SELF-CARE Condition: STABLE Referrals: BREE RICHARDS MD (PCP) Patient Instructions: Facial or Scalp Contusion, Fall Prevention and Home Safety, [id number], Hand Injuries, [id number] Additional Instructions: Thank you for allowing us to participate in your care today. Return to the emergency department you have any new or worsening symptoms, or if you are concerned for any reason. Return to emergency department if you have any new or concerning symptoms including but not limited to fever, chills, nausea, vomiting, intractable pain, any new rashes, chest pain, shortness of air , uncontrolled bleeding, difficulty breathing, and/or vision loss. Follow up with your primary care physician within 1-2 days. Call your Primary Doctor tomorrow and inform them of your visit today. If you do not have a primary care provider we are happy to provide you with a list of our primary care providers contact information. This condition should be evaluated by your primary care physician and any recommended consulting services for continued management within 2 days after discharge. If at any time, you are having difficulty getting into your primary care doctor or a specialist, return to the emergency department. Problem Qualifiers STANFORD MORALES MD Feb 09, 2018 12:12
[2018-02-09 13:01] LABS: BASO % 1 % (0-3); EOS # 0.1 x10^3/uL (0.0-0.7); EOS % 1 % (0-3); HEMATOCRIT 39.4 % (36.0-47.0); HEMOGLOBIN 13.1 g/dL (12.0-15.5); LYMPH # 1.3 x10^3/uL (1.0-4.8); LYMPH % 20 % (24-48); MEAN CORPUSCULAR HEMOGLOBIN 30 pg (25-35); MEAN CORPUSCULAR HGB CONC 33 g/dL (31-37); MEAN CORPUSCULAR VOLUME 89 fL (79-100); MONO # 0.3 x10^3/uL (0.0-1.1); MONO % 5 % (0-9); NEUT # 4.7 x10^3uL (1.8-7.7); NEUT % 73 % (31-73); PLATELET COUNT 160 x10^3/uL (140-400); RED BLOOD COUNT 4.41 x10^6/uL (3.50-5.40); RED CELL DISTRIBUTION WIDTH 16.6 % (11.5-14.5); WHITE BLOOD COUNT 6.5 x10^3/uL (4.0-11.0)
--- NOTE | 2018-02-09 13:08 | RAD ---
EXAM: Right ankle and foot, 3 views; right hand, 3 views. HISTORY: Pain. Fall. COMPARISON: None. FINDINGS: Right foot and ankle: 3 views of the right foot and ankle are obtained. There is lateral predominant ankle soft tissue swelling. No displaced fracture is seen. There is no osteochondral lesion. The ankle mortise is intact. There is a small plantar spur. There is enthesopathy at the Achilles tendon insertion. Right hand: 3 views of the right hand are obtained. There is no acute fracture, dislocation or subluxation. There is suggestion of a healed distal fifth metacarpal fracture. There is mild first carpometacarpal osteoarthritis. IMPRESSION: 1. Lateral predominant right ankle soft tissue swelling. 2. Small right plantar spur and enthesopathy at the Achilles tendon insertion. 3. Mild right first carpometacarpal osteoarthritis. Electronically signed by: Maryuri Mercer MD (02/09/2018 1:04 PM) [id number]
[2018-02-09 13:10] LABS: ALBUMIN 3.9 g/dL (3.4-5.0); ALBUMIN/GLOBULIN RATIO 1.1 (1.0-1.7); CALCIUM 9.5 mg/dL (8.5-10.1); CREATININE 0.7 mg/dL (0.6-1.0); GFR 83.2; POTASSIUM 4.4 mmol/L (3.5-5.1); TOTAL BILIRUBIN 0.5 mg/dL (0.2-1.0); TOTAL PROTEIN 7.6 g/dL (6.4-8.2)
--- NOTE | 2018-02-09 13:23 | RAD ---
CT HEAD AND CERVICAL SPINE WO, CT MAXILLOFACIAL WO CONTRAST Indication: Head and neck pain after a fall, facial pain, broken nose Technique: Noncontrast CT imaging was performed of the head, maxillofacial region, cervical spine, multiplanar reconstruction images submitted. One or more of the following individualized dose reduction techniques were utilized for this examination: 1. Automated exposure control 2. Adjustment of the mA and/or kV according to patient size 3. Use of iterative reconstruction technique. Comparison: October 06, 2017 CT head exam, no other previous exam available Head: Findings: There is motion degradation. No convincing acute intracranial hemorrhage is identified. There is no midline shift. Ventricular size is within normal limits. Visualized mastoid air cells are aerated. There is segmental opacification of a posterior left ethmoid air cell. No acute calvarial abnormality is identified. IMPRESSION: 1. No convincing acute intracranial abnormality is identified, exam degraded by motion. Cervical spine CT: FINDINGS: Cervical vertebral body stature and AP alignment are maintained. Atlantoaxial distance is within normal limits. No acute cervical spine fracture is identified. There is no abnormality of the limited visualized lung apices. IMPRESSION: 1. No acute cervical spine fracture is identified. Maxillofacial CT: FINDINGS: No acute maxillofacial fracture is identified. Paranasal sinuses are aerated other than partial opacification of posterior left ethmoid air cell, no air-fluid levels. IMPRESSION: 1. No acute maxillofacial fracture is identified. Electronically signed by: Audi Hayes MD (02/09/2018 1:18 PM) [id number]
--- NOTE | 2018-02-09 13:40 | RAD ---
CT CHEST ABDOMEN PELVIS WO Indication: Left rib and side pain after a fall Technique: Noncontrast CT imaging was performed of the chest, abdomen, pelvis, multiplanar reconstruction images submitted. One or more of the following individualized dose reduction techniques were utilized for this examination: 1. Automated exposure control 2. Adjustment of the mA and/or kV according to patient size 3. Use of iterative reconstruction technique. Comparison: Chest CTA March 10, [address] abdomen pelvis exam July 18, 2007 CHEST: Findings: There is no pneumothorax, pleural or pericardial effusion, lobar consolidation. There is likely very mild atelectasis dependently bilaterally. No displaced rib fracture is identified. There is right shoulder arthroplasty. Thoracic aortic caliber is within normal limits. No new significantly enlarged nodes are identified of the chest. There is probable small 3 to 4 mm right lower lobe pulmonary nodule axial image 48 series 2 difficult to compare although not clearly seen previously. There is also probable 3 4 mm left upper lobe nodule axial image 57 with adjacent mild groundglass density, also a couple of small foci of nodularity of the left upper lobe axial images 46 and 43 with the largest of these 2 mm also difficult to compare as previously greater degree of atelectasis. There are also some new small grouped of superior right lower lobe nodularity axial image 42, largest of these about 2 mm. Thoracic vertebral body stature is overall maintained. IMPRESSION: 1. No significant acute abnormality is identified. There are some small pulmonary nodules better seen on this exam although a few which are likely new, previously greater degree of atelectasis. Given a few new nodules since 03/10/2017 exam, follow-up to assess stability such as in 6 months is advised. Abdomen pelvis: Findings: Accurate evaluation of abdominal visceral organs is limited without intravenous contrast, no new obvious focal abnormality liver, spleen, pancreas. There has been cholecystectomy. There is no hydronephrosis or renal calculus. There is no adrenal nodularity. Evaluation of bowel is limited without oral contrast. There is no free air, free fluid, bowel dilatation. No significant inflammatory type change is identified. Lumbar vertebral body stature and AP alignment are maintained. IMPRESSION: 1. No significant acute abnormality is identified. Electronically signed by: Audi Hayes MD (02/09/2018 1:36 PM) [id number]
[2018-02-09 13:49] LABS: BACTERIA,URINE 0 /HPF (0-FEW); BILIRUBIN,URINE NEG (NEG); CLARITY,URINE HAZY; COLOR,URINE YELLOW; GLUCOSE,URINE NEG (NEG); NITRITE,URINE NEG (NEG); SQUAMOUS EPITHELIAL CELL,UR OCC /LPF; UROBILINOGEN,URINE 0.2 mg/dL (0.2 mg/dL); WBC,URINE RARE /HPF (0-4)
[2018-02-09 14:20] VITALS: BP 175/82
== END 2018-02-09 14:20 | disposition home or self-care (01) ==
LOC: ER 12:05
DX: S00.31XA Abrasion of nose, initial encounter (principal); S69.91XA Unspecified injury of right wrist, hand and finger(s), initial encounter; M79.671 Pain in right foot; R07.2 Precordial pain; R10.11 Right upper quadrant pain; R22.41 Localized swelling, mass and lump, right lower limb; M77.8 Other enthesopathies, not elsewhere classified; M18.9 Osteoarthritis of first carpometacarpal joint, unspecified; J44.9 Chronic obstructive pulmonary disease, unspecified; M79.7 Fibromyalgia; E78.00 Pure hypercholesterolemia, unspecified; I10 Essential (primary) hypertension; G89.29 Other chronic pain; Z88.1 Allergy status to other antibiotic agents; Z88.5 Allergy status to narcotic agent; Z91.041 Radiographic dye allergy status; W01.198A Fall on same level from slipping, tripping and stumbling with subsequent striking against other object, initial encounter; Y93.01 Activity, walking, marching and hiking; Y92.89 Other specified places as the place of occurrence of the external cause; Y99.8 Other external cause status
CPT/HCPCS: 36415; 70450; 70486; 71250; 72125; 73130; 73610; 73630; 74176; 80053; 81001; 83690; 85025; 96374; 99284; J3010

== ENCOUNTER → 2018-09-11 | Outpatient (CLI) | payer MEDICARE, OTHER ==
--- NOTE | 2018-09-11 10:12 | RAD ---
EXAM: Lower extremity arterial Doppler sonogram with ankle-brachial indices (LAYTON). HISTORY: Calf claudication. TECHNIQUE: Doppler sonographic evaluation of the lower extremities was performed and pressure readings were assessed. FINDINGS: There are biphasic waveforms throughout the bilateral lower extremity arteries. There is an elevated peak systolic velocity within the right common femoral artery, measuring 171 cm/s. There is an upper normal peak systolic velocity within the proximal right superficial femoral artery, measuring 146 cm/s. The remainder of the lower extremity artery peak systolic velocities are within normal limits. No severe stenosis or occlusion is seen. Right brachial pressure: 130 mmHg Left brachial pressure: 156 mmHg Right ankle pressure (dorsalis pedis artery): 172 mmHg Right ankle pressure (posterior tibial artery): 136 mmHg Right LAYTON: 1.1 Left ankle pressure (dorsalis pedis artery): 160 mmHg Left ankle pressure (posterior tibial artery): 158 mmHg Left LAYTON: 1.0 IMPRESSION: 1. Normal bilateral ankle-brachial indices. 2. Mildly elevated peak systolic velocity within the right common femoral artery and upper normal peak systolic velocity within the proximal right superficial femoral artery, suggesting mild stenosis. No severe stenosis or occlusion is seen involving the lower extremity arteries. Electronically signed by: Maryuri Mercer MD (09/11/2018 10:09 AM) [place] [id number]
== END | disposition home or self-care (01) ==
LOC: US 08:28
PROVIDERS: ATTEND Podiatrist Foot & Ankle Surgery
DX: I73.9 Peripheral vascular disease, unspecified (principal)
CPT/HCPCS: 93922; 93925